=== PATIENT | male | born 1990 | race Caucasian/White ===

== ENCOUNTER 2019-02-13 10:58 | Emergency (ER) | payer SELFPAY ==
[2019-02-13 11:18] VITALS: BP 143/82
== END 2019-02-13 11:16 | disposition left against medical advice (07) ==
LOC: ER 10:58
DX: Z53.21 Procedure and treatment not carried out due to patient leaving prior to being seen by health care provider (principal)

== ENCOUNTER 2019-11-12 07:56 | Emergency (ER) | payer SELFPAY ==
[2019-11-12] MEDS ORDERED: ONDANSETRON 4 MG TAB.RAPDIS PO ONE (09:49)
--- NOTE | 2019-11-12 10:10 | ER Document Report ---
ED Respiratory Problem - General Chief Complaint: Cough Stated Complaint: COUGH,CONGESTION Time Seen by Provider: 11/12/19 09:34 Notes: CHIEF COMPLAINT: Multiple complaints HPI: 29-year-old male presenting with multiple complaints. Patient is a smoker. Patient reports 1 day of sore throat, myalgia, cough with left-sided chest pain with coughing only. States that he had 2-3 episodes of vomiting today denies abdominal pain. No shortness of breath. Has had 2-3 episodes of diarrhea today ROS: See HPI - all other systems were reviewed and are otherwise negative Constitutional: no fever Eyes: no drainage, no blurred vision ENT: no runny nose, no sore throat Cardiovascular: Positive chest pain with coughing Resp: no SOB, + cough GI: + vomiting, + diarrhea, no abdominal pain : no dysuria Integumentary: no rash Allergy: no hives Musculoskeletal: no extremity pain or swelling Neurological: no numbness/tingling, no weakness MEDICATIONS: I agree with the patient medications as charted by the RN. ALLERGIES: I agree with the allergies as charted by the RN. PAST MEDICAL HISTORY/PAST SURGICAL HISTORY: Reviewed and agree as charted by RN. SOCIAL HISTORY: Reviewed and agree as charted by RN. FAMILY HISTORY: No significant familial comorbid conditions directly related to patient complaint EXAM: Reviewed vital signs as charted by RN. CONSTITUTIONAL: Alert and oriented and responds appropriately to questions. Well-appearing; well-nourished HEAD: Normocephalic; atraumatic EYES: PERRL; Conjunctivae clear, sclerae non-icteric ENT: normal nose; no rhinorrhea; moist mucous membranes; pharynx without lesions noted, no uvula edema or deviation, no tonsillar hypertrophy, phonation normal NECK: Supple without meningismus; non-tender; no cervical lymphadenopathy, no masses CARD: RRR; no murmurs, no clicks, no rubs, no gallops; symmetric distal pulses RESP: Normal chest excursion without splinting or tachypnea; breath sounds clear and equal bilaterally; no wheezes, no rhonchi, no rales, pulse oximetry 98% on room air not hypoxic. Mild tenderness in the left lateral chest wall on palpation ABD/GI: Normal bowel sounds; non-distended; soft, non-tender, no rebound, no guarding; no palpable organomegaly or masses. BACK: The back appears normal and is non-tender to palpation, there is no CVA tenderness EXT: Normal ROM in all joints; non-tender to palpation; no cyanosis, no effusions, no edema SKIN: Normal color for age and race; warm; dry; good turgor; no acute lesions noted NEURO: Moves all extremities equally; Motor and sensory function intact PSYCH: The patient's mood and manner are appropriate. Grooming and personal hygiene are appropriate. MDM: 29-year-old male upper respiratory symptoms over the last 24 hours she is a smoker also with several episodes of vomiting. Has been pain in the left chest wall with coughing and with palpation. Low suspicion for ACS. Will obtain strep test, COVID test, chest x-ray, give Zofran for nausea. TRAVEL OUTSIDE OF THE [place] IN LAST 30 DAYS: No - Related Data Allergies/Adverse Reactions: No Known Allergies Allergy (Verified 11/12/19 08:22) Past Medical History - Social History Smoking Status: Current Every Day Smoker Chew tobacco use (# tins/day): No Frequency of alcohol use: Heavy Drug Abuse: None Family History: Reviewed & Not Pertinent, DM, Other - uncle [place] in 50's Patient has homicidal ideation: No - Past Medical History Cardiac Medical History: Reports: Hx Heart Murmur - as - Immunizations Immunizations up to date: Yes Hx Diphtheria, Pertussis, Tetanus Vaccination: Yes Physical Exam - Vital signs Vitals: Temp Pulse Resp BP Pulse Ox 97.6 F 89 18 149/105 H 100 11/12/19 08:06 11/12/19 08:06 11/12/19 08:06 11/12/19 08:06 11/12/19 08:06 Course - Re-evaluation Re-evalutation: 11/12/19 10:34 Chest x-ray on my review does not reveal evidence of an infiltrate or pneumonia 11/12/19 11:59 Rapid strep is negative. Nausea is improved. Patient will be a person under investigation for COVID-19 pending results 11/12/19 12:12 Patient was noted to be mildly hypertensive have requested nursing to recheck his blood pressure prior to discharge and notify me if abnormal. Patient may follow this up with his primary care provider for further evaluation and this was discussed with the patient - Vital Signs Vital signs: Temp Pulse Resp BP Pulse Ox 97.6 F 89 18 149/105 H 100 11/12/19 08:06 11/12/19 08:06 11/12/19 08:06 11/12/19 08:06 11/12/19 08:06 Discharge - Discharge Clinical Impression: Cough, Person under investigation for COVID-19 Vomiting Qualifiers: Vomiting type: unspecified Vomiting Intractability: non-intractable Nausea presence: with nausea Qualified Code(s): R11.2 - Nausea with vomiting, unspecified Hypertension Qualifiers: Hypertension type: unspecified Qualified Code(s): I10 - Essential (primary) hypertension Condition: Stable Disposition: HOME, SELF-CARE Instructions: COVID-19 Guidance for Persons Under Investigation Additional Instructions: You are considered a person under investigation for COVID-19 at this time self quarantine at home pending your test results which may take 2 to 5 days. You will likely receive an email with your results. Use the albuterol inhaler 2 puffs every 4 hours as needed to help with coughing. Take Zofran for any nausea or vomiting issues. Continue to hydrate well at home. Follow-up with your primary care provider for reevaluation of symptoms call for appointment. It was noted today initially that your blood pressure was slightly elevated if this continues to be the case you may follow-up with a primary care provider for reevaluation Prescriptions: Albuterol Sulfate [Proair HFA Inhalation Aerosol 8.5 gm MDI] 2 puff IH Q4H PRN #1 mdi PRN Reason: Ondansetron [Zofran Odt 4 mg Tablet] 1 - 2 tab PO Q4H PRN #15 tab.rapdis PRN Reason: For Nausea/Vomiting Referrals: DAYANA HURT MD [ACTIVE STAFF] - Follow up as needed
--- NOTE | 2019-11-12 10:36 | RADIOLOGY REPORT (SQ) ---
EXAM DESCRIPTION: CHEST SINGLE VIEW IMAGES COMPLETED DATE/TIME: 11/12/2019 10:26 am REASON FOR STUDY: cough/congestion COMPARISON: 05/14/2014 EXAM PARAMETERS: NUMBER OF VIEWS: One view. TECHNIQUE: Single frontal radiographic view of the chest acquired. RADIATION DOSE: NA LIMITATIONS: None. FINDINGS: LUNGS AND PLEURA: No opacities, masses or pneumothorax. No pleural effusion. MEDIASTINUM AND HILAR STRUCTURES: No masses. Contour normal. HEART AND VASCULAR STRUCTURES: Heart normal in size. Normal vasculature. BONES: Healed left-sided rib fracture. HARDWARE: None in the chest. OTHER: No other significant finding. IMPRESSION: NO ACUTE RADIOGRAPHIC FINDING IN THE CHEST. TECHNICAL DOCUMENTATION: JOB ID: [id number] 2010 [employer]- All Rights Reserved Reading location - IP/workstation name: [email or web address]
[2019-11-12 12:07] VITALS: BP 134/91
== END 2019-11-12 12:20 | disposition home or self-care (01) ==
LOC: ER 07:56
DX: J02.9 Acute pharyngitis, unspecified (principal); R05 Cough; M79.10 Myalgia, unspecified site; F17.200 Nicotine dependence, unspecified, uncomplicated; I10 Essential (primary) hypertension; Z20.828 Contact with and (suspected) exposure to other viral communicable diseases
CPT/HCPCS: 99284; 87070; 87880; 87635; 87077; 71045; S0119; C9803

== ENCOUNTER 2020-02-14 10:45 | Inpatient (IN) | payer SELFPAY ==
--- NOTE | 2020-02-14 12:09 | ER Document Report ---
ED Medical Screen (RME) - General Chief Complaint: Abdominal Pain Stated Complaint: ABDOMINAL PAIN,VOMITING,DIARRHEA Time Seen by Provider: 02/14/20 12:02 Mode of Arrival: Ambulatory Information source: Patient Notes: 29-year-old male presented to ED for complaint nausea vomiting distended abdomen a lot of pain. He states he drank a lot of beer on [employer]. He states he has had nausea and vomiting as well as stomach and pain since then. He states he does drink every every day. He does smoke a pack a day and he uses recreational Vicodin Percocets. He states he does not use any other illicit drugs. I have greeted and performed a rapid initial assessment of this patient. A comprehensive ED assessment and evaluation of the patient, analysis of test results and completion of medical decision making process will be conducted by an additional ED providers. TRAVEL OUTSIDE OF THE [place] IN LAST 30 DAYS: No - Related Data Allergies/Adverse Reactions: No Known Allergies Allergy (Verified 11/12/19 08:22) Past Medical History - Social History Frequency of alcohol use: Heavy Drug Abuse: Prescription drugs - Past Medical History Cardiac Medical History: Reports: Hx Heart Murmur - as - Immunizations Immunizations up to date: Yes Hx Diphtheria, Pertussis, Tetanus Vaccination: Yes Physical Exam - Vital signs Vitals: Temp Pulse Resp BP Pulse Ox 98.0 F 126 H 22 H 121/87 H 98 02/14/20 11:26 02/14/20 11:26 02/14/20 11:02/14/20 11:02/14/20 11:26 Course - Vital Signs Vital signs: Temp Pulse Resp BP Pulse Ox 98.0 F 126 H 22 H 121/87 H 98 02/14/20 11:26 02/14/20 11:26 02/14/20 11:26 02/14/20 11:02/14/20 11:26
[2020-02-14 12:38] LABS: ABSOLUTE LYMPHOCYTES (AUTO) 1.7 10^3/uL (0.5-4.7); ABSOLUTE MONOCYTES (AUTO) 0.3 10^3/uL (0.1-1.4); BASOPHILS % (AUTO) 0.1 % (0-2); HEMATOCRIT 51.4 % (37.9-51.0); HEMOGLOBIN 18.2 g/dL (13.5-17.0); LYMPHOCYTES % (AUTO) 16.8 % (13-45); MEAN CORPUSCULAR HEMOGLOBIN 34.2 pg (27.0-33.4); MEAN CORPUSCULAR HGB CONC 35.3 g/dL (32.0-36.0); MEAN CORPUSCULAR VOLUME 97 fl (80-97); MONOCYTES % (AUTO) 3.3 % (3-13); RED BLOOD COUNT 5.31 10^6/uL (4.35-5.55); RED CELL DISTRIBUTION WIDTH 15.8 % (11.5-14.0); SEGMENTED NEUTROPHILS % (AUTO) 79.8 % (42-78); TOTAL CELLS COUNTED % (AUTO) 100 %
[2020-02-14 13:43] LABS: PLATELET COUNT 179 10^3/uL (150-450)
[2020-02-14 16:53] LABS: ALBUMIN 3.7 g/dL (3.5-5.0); ALKALINE PHOSPHATASE 109 U/L (38-126); ANION GAP 16 (5-19); ASPARTATE AMINO TRANSFERASE 102 U/L (17-59); BILIRUBIN,TOTAL 1.6 mg/dL (0.2-1.3); BLOOD UREA NITROGEN 25 mg/dL (7-20); CARBON DIOXIDE 18 mmol/L (22-30); CHLORIDE 92 mmol/L (98-107); GLUCOSE 159 mg/dL (75-110); POTASSIUM 4.5 mmol/L (3.6-5.0)
[2020-02-14 16:54] LABS: ALCOHOL < 10 mg/dL (NONE DETECTED)
[2020-02-14 17:01] LABS: CALCIUM 6.4 mg/dL (8.4-10.2)
[2020-02-14] MEDS ORDERED: HYDROMORPHONE HCL INJ/PF 2 MG/ML AMPULE IV ONE ×2 (17:42→20:08)
[2020-02-14] MEDS ORDERED: ONDANSETRON HCL INJ/PF 4 MG/2 ML SDV IV ONE ×2 (17:42→20:09)
[2020-02-14] MEDS ORDERED: NORMAL SALINE 1000 ML 1,000 ML IV ONE ×2 (17:48→20:27)
--- NOTE | 2020-02-14 17:50 | ER Document Report ---
ED General - General Chief Complaint: Abdominal Pain Stated Complaint: ABDOMINAL PAIN,VOMITING,DIARRHEA Time Seen by Provider: 02/14/20 12:02 Mode of Arrival: Ambulatory Information source: Patient Notes: 29-year-old man presenting to the emergency department with a 3-day history of increasing abdominal pain and also increase in abdominal girth. He is a heavy drinker according to significant other he drinks every day 6-8 8 ounce cans of alcoholic beverage daily. He has some associated nausea, loss of appetite and denies diarrhea or hematemesis. He has had a history of withdrawal seizures in the past. He does note, "he feels a bit shaky", but denies any seizure activity since he stopped drinking 4 days ago. TRAVEL OUTSIDE OF THE [place] IN LAST 30 DAYS: No - Related Data Allergies/Adverse Reactions: No Known Allergies Allergy (Verified 11/12/19 08:22) Past Medical History - General Information source: Patient - Social History Smoking Status: Unknown if Ever Smoked Frequency of alcohol use: Heavy Drug Abuse: Prescription drugs Family History: Reviewed & Not Pertinent, DM, Other - uncle [place] in 50's - Past Medical History Cardiac Medical History: Reports: Hx Heart Murmur - as - Immunizations Immunizations up to date: Yes Hx Diphtheria, Pertussis, Tetanus Vaccination: Yes Review of Systems - Review of Systems Notes: Constitutional: Negative for fever. HENT: Negative for sore throat. Eyes: Negative for visual changes. Cardiovascular: Negative for chest pain. Respiratory: Negative for shortness of breath. Gastrointestinal: See HPI Genitourinary: Negative for dysuria. Musculoskeletal: Negative for back pain. Skin: Negative for rash. Neurological: Negative for headaches, weakness or numbness. 10 point ROS negative except as marked above and in HPI. Physical Exam - Vital signs Vitals: Temp Pulse Resp BP Pulse Ox 98.0 F 126 H 22 H 121/87 H 98 02/14/20 11:26 02/14/20 11:26 02/14/20 11:02/14/20 11:02/14/20 11:26 - Notes Notes: PHYSICAL EXAMINATION: Physical Exam: General: Well-nourished well-developed in no acute distress HEENT: NC/AT, pupils equal round and reactive to light, MM moist,nares clear, oropharynx clear, airway patent Neck: supple, no adenopathy, no masses. Good range of motion Lungs: clear, no wheezing, no rales no rhonchi CVS: Regular rate and rhythm no murmur gallop or rub Abdomen: Soft, active, diffuse tenderness, mildly distended abdomen, no masses, no hepatosplenomegaly Ext: No edema, clubbing or cyanosis. Neuro: Alert and responsive, moving all 4 extremities on command, cranial nerves intact, no focal findings Skin: Intact no open lesions, no rash PSYCH: Normal mood, normal affect. Course - Re-evaluation Re-evalutation: 02/14/20 20:02 Patient who has been a heavy alcohol user and has now developed severe abdominal pain over the past 3 days. He has not drank in the past 4 days according to his significant other and the patient. He has obvious pancreatitis with markedly elevated lipase and CT findings suggestive of acute pancreatitis. He also has elevated BUN and creatinine, LITA. IV fluids have been started he is given hydromorphone for pain as well as Zofran for nausea. I will did talk to the hospitalist about this patient and need for hospitalization. 02/14/20 20:03 - Vital Signs Vital signs: Temp Pulse Resp BP Pulse Ox 98.1 F 101 H 14 147/88 H 96 02/15/20 12:36 02/15/20 16:00 02/15/20 16:00 02/15/20 12:36 02/15/20 16:00 - Laboratory Results Result Diagrams: 02/15/20 06:37 02/15/20 13:20 Laboratory Results Interpreted: 02/14/20 02/14/20 02/14/20 12:12 16:24 16:24 Hgb 18.2 H Hct 51.4 H MCH 34.2 H RDW 15.8 H Seg Neutrophils % 79.8 H Sodium 125.7 L Chloride 92 L Carbon Dioxide 18 L BUN 25 H Creatinine 2.50 H Est GFR ( Amer) 37 L Est GFR (MDRD) Non-Af 30 L Glucose 159 H Calcium 6.4 L* Total Bilirubin 1.6 H Direct Bilirubin 1.0 H AST 102 H ALT 65 H Ammonia < 8.7 L Lipase 1986.2 H Critical Laboratory Results Reviewed: Yes Attending or Supervising Physician who Reviewed Labs: JOSH UMANZOR - Radiology Results Radiology Results Interpreted: 02/14/20 20:04 Abdomen/Pelvis CT 02/14/20 12:08 IMPRESSION: 1. Acute pancreatitis with small to moderate ascites which is likely reactive. Evaluation of the pancreatic parenchyma is limited without IV contrast. There is subtle hypodense attenuation in the pancreatic head suggestive of developing pancreatic necrosis. 2. Severe hepatic steatosis. 3. Small right pleural effusion. Critical Radiology Results Reviewed: Yes Attending or Supervising Physician who Reviewed Radiology: JOSH UMANZOR Critical Care Note - Critical Care Note Total time excluding time spent on procedures (mins): 60 - Critical care time spent obtaining history from patient or surrogate, discussions with consultants, development of treatment plan with patient or surrogate, evaluation of patient's response to treatment, examination of patient, ordering and performing treatments and interventions, ordering and review of laboratory studies, re- evaluation of patient's condition, ordering and review of radiographic studies and review of old charts Discharge - Discharge Clinical Impression: LITA (acute kidney injury), Hepatic steatosis, Alcohol abuse, Low calcium levels Acute pancreatitis Qualifiers: Pancreatitis type: alcohol induced Acute pancreatitis complication: unspecified Qualified Code(s): K85.20 - Alcohol induced acute pancreatitis without necrosis or infection Condition: Good Disposition: ADMITTED INPATIENT Admitting Provider: Chaitanya (Hospitalist) Unit Admitted: Telemetry
--- NOTE | 2020-02-14 19:09 | RADIOLOGY REPORT (SQ) ---
EXAM DESCRIPTION: CT ABD/PELVIS NO ORAL OR IV IMAGES COMPLETED DATE/TIME: 02/14/2020 5:25 pm REASON FOR STUDY: Distended abdomen severe pain. Renal failure creatinine 2.5 today. COMPARISON: None. TECHNIQUE: CT scan of the abdomen and pelvis performed without intravenous or oral contrast. Images reviewed with lung, soft tissue, and bone windows. Reconstructed coronal and sagittal MPR images revi ewed. All images stored on PACS. All CT scanners at this facility use dose modulation, iterative reconstruction, and/or weight based d osing when appropriate to reduce radiation dose to as low as reasonably achievable (ALARA). [facility]: Dose Right [facility]: CareDose [facility]: Dose Right [facility]: Teradose 4D [facility]: [employer] RADIATION DOSE: CT Rad equipment meets quality standard of care and radiation dose reduction techniq ues were employed. CTDIvol: 5.3 mGy. DLP: 297 mGy-cm.mGy. LIMITATIONS: None. FINDINGS: LOWER CHEST: Small right pleural effusion. No focal consolidation or significant ground-g lass attenuation. NON-CONTRASTED LIVER, SPLEEN, ADRENALS: Limited evaluation due to lack of IV contrast. There is maryanne re hepatic steatosis. Spleen has normal size. No adrenal mass. PANCREAS: Diffuse enlargement of the pancreas with surrounding peripancreatic fluid and inflammatory change. Evaluation of the parenchyma is limited without IV contrast. There is low-attenuation in th e pancreatic head which may represent developing pancreatic necrosis. No evidence of pancreatic duct al dilation. GALLBLADDER: No identified stones by CT criteria. No inflammatory changes to suggest cholecystitis. RIGHT KIDNEY AND URETER: No suspicious masses. Assessment limited by lack of IV contrast. No signif icant calcifications. No hydronephrosis or hydroureter. LEFT KIDNEY AND URETER: No suspicious masses. Assessment limited by lack of IV contrast. No signifi cant calcifications. No hydronephrosis or hydroureter. AORTA AND RETROPERITONEUM: No aneurysm. No retroperitoneal masses or adenopathy. BOWEL AND PERITONEAL CAVITY: There is high density attenuation contrast in the distal ileum and proxi mal colon suggestive of recent ingested in of oral contrast. There is no bowel obstruction. Duodena l wall thickening and surrounding inflammatory change at the pancreaticoduodenal groove is likely altaf ctive. Small to moderate amount of ascites at the duodenum and pancreatic head extending into the ri ght and left pericolic gutters with trace fluid in the pelvis. No pneumoperitoneum. APPENDIX: Normal. PELVIS, BLADDER, AND ABDOMINAL WALL:No abnormal masses. No free fluid. Bladder normal. BONES: No significant findings. OTHER: No other significant finding. IMPRESSION: 1. Acute pancreatitis with small to moderate ascites which is likely reactive. Evaluation of the todd creatic parenchyma is limited without IV contrast. There is subtle hypodense attenuation in the panc reatic head suggestive of developing pancreatic necrosis. 2. Severe hepatic steatosis. 3. Small right pleural effusion. COMMENT: Quality ID # [id number]: Final reports with documentation of one or more dose reduction techniques (e.g., Automated exposure control, adjustment of the mA and/or kV according to patient size, use of iterative reconstruction technique) TECHNICAL DOCUMENTATION: JOB ID: [id number] 2010 [employer]- All Rights Reserved Reading location - IP/workstation name: [email or web address]
[2020-02-14] MEDS ORDERED: CALCIUM GLUCONATE 1000 MG/10 ML INJ IV ONE (20:13)
[2020-02-14] MEDS ORDERED: LORAZEPAM INJ 2 MG/1 ML VIAL IV ONE (20:29)
[2020-02-14] MEDS ORDERED: IPRATROPIUM/ALBUTEROL 0.5-2.5 MG/3 ML AMPUL NEB PRN (20:55)
[2020-02-14] MEDS ORDERED: NORMAL SALINE 1000 ML 1,000 ML IV PRN (20:55)
[2020-02-14] MEDS ORDERED: ACETAMINOPHEN 325 MG TABLET PO PRN (20:55)
[2020-02-14] MEDS ORDERED: MAGNESIUM HYDROXIDE SUSP 30 ML UDCUP PO PRN (20:55)
[2020-02-14] MEDS ORDERED: ONDANSETRON 4 MG TAB.RAPDIS PO PRN (20:55)
[2020-02-14] MEDS ORDERED: ONDANSETRON HCL INJ/PF 4 MG/2 ML SDV IV PRN (20:55)
[2020-02-14] MEDS ORDERED: DIAZEPAM INJ 10 MG/2 ML DISP.SYRIN IV PRN (21:00)
[2020-02-14] MEDS ORDERED: NORMAL SALINE 1000 ML 1,000 ML with POTASSIUM CHLORIDE 20 MEQ, MAGNESIUM SULFATE 8 MEQ,... IV ONE ×5 (22:30)
[2020-02-14] MEDS ORDERED: CEFTRIAXONE 1 GM/D5W RTU 1 GM/50 ML RTUPB IV ONE (23:00)
--- NOTE | 2020-02-14 23:12 | PDOC H&P ---
History of Present Illness Admission Date/PCP: 02/14/20 20:24 History of Present Illness: CARLOS FLYNN JR is a 29 year old male Past medical history of EtOH abuse presenting to ED complaining of abdominal pain x3 days. Patient has a history of daily drinking for several years, drinks about 6-8 8 ounce cans of alcoholic beverages daily, about 4 days ago he started having abdominal pain and he stopped drinking, since then he has been having worsening abdominal pain, abdominal distention, loss of appetite, diarrhea, nausea and vomiting. Abdominal pain is explained as diffuse, stabbing, 10/10 on severity scale, radiating to back, better with certain body position, constant, worse with eating or movement. Also complaining of being very anxious, having diffuse muscular spasms especially in the neck. Patient has history of multiple alcohol withdrawals however has never been hospitalized for alcohol withdrawal, he also has history of alcohol induced seizure but is not on any antiseizure medications. Patient denies any fever, shortness of breath, chest pain. In ED he was noted to be hyponatremic, with elevated BUN and creatinine, severe hypocalcemia, elevated liver chemistries, and lipase of 1986.[address] abdomen patient was noted to have acute pancreatitis with small to moderate ascites and subtle hypodense attenuation in the pancreatic head possibly developing panc reatic necrosis, slight pleural effusion and severe hepatic steatosis. Hospitalist was consulted for admission. Past Medical History Cardiac Medical History: Reports: Heart Murmur - as Social History Smoking Status: Unknown if Ever Smoked Family History Family History: Reviewed & Not Pertinent, DM, Other - uncle [place] in 50's Parental Family History Reviewed: Yes Children Family History Reviewed: Yes Sibling(s) Family History Reviewed.: Yes Medication/Allergy Home Medications: Hydrocodone/Acetaminophen [[place] 5-325 mg Tablet] 1 - 2 tab PO ASDIR #15 tablet 04/05/15 Ibuprofen [Advil] 200 mg PO Q2DAYS 04/05/15 Methocarbamol [Robaxin] 500 mg PO BID PRN #20 tablet 04/05/15 Albuterol Sulfate [Proair HFA Inhalation Aerosol 8.5 gm MDI] 2 puff IH Q4H PRN #1 mdi 11/12/19 Ondansetron [Zofran Odt 4 mg Tablet] 1 - 2 tab PO Q4H PRN #15 tab.rapdis 10/21 05/08 Allergies/Adverse Reactions: No Known Allergies Allergy (Verified 11/12/19 08:22) Review of Systems Review of Systems: as per hpi Physical Exam Vital Signs: Temp Pulse Resp BP Pulse Ox 98.2 F 112 H 14 131/82 H 97 02/14/20 21:43 02/14/20 21:43 02/14/20 21:43 02/14/20 21:43 02/14/20 21:43 Intake & Output 02/13/20 02/14/20 02/15/20 06:59 06:59 06:59 Intake Total 1999 Balance 1999 Weight 76.7 kg General appearance: PRESENT: severe distress, other - Sitting in bed appears very uncomfortable and in a lot of pain. Head exam: PRESENT: atraumatic, normocephalic Neck exam: ABSENT: carotid bruit, JVD, lymphadenopathy, thyromegaly Respiratory exam: PRESENT: clear to auscultation landry, tachypnea. ABSENT: rales, rhonchi, wheezes Cardiovascular exam: PRESENT: RRR, tachycardia. ABSENT: diastolic murmur, rubs, systolic murmur Pulses: PRESENT: normal dorsalis pedis pul GI/Abdominal exam: PRESENT: distended, firm, guarding, hypoactive bowel sounds, tenderness - Diffuse. ABSENT: mass, organolmegaly, rebound Extremities exam: PRESENT: full ROM. ABSENT: calf tenderness, clubbing, pedal edema Neurological exam: PRESENT: alert, awake, oriented to person, oriented to place, oriented to time, oriented to situation, CN II-XII grossly intact. ABSENT: motor sensory deficit Psychiatric exam: PRESENT: anxious Results Laboratory Results: 02/14/20 12:12 02/14/20 16:24 02/14/20 02/14/20 02/14/20 12:12 12:12 12:12 WBC 10.0 RBC 5.31 Hgb 18.2 H Hct 51.4 H MCV 97 MCH 34.2 H MCHC 35.3 RDW 15.8 H Plt Count 179 Seg Neutrophils % 79.8 H Sodium Cancelled Potassium Cancelled Chloride Cancelled Carbon Dioxide Cancelled Anion Gap Cancelled BUN Cancelled Creatinine Cancelled Est GFR ( Amer) Cancelled Est GFR (Non-Af Amer) Cancelled Glucose Cancelled Calcium Cancelled Total Bilirubin Cancelled AST Cancelled Alkaline Phosphatase Cancelled Ammonia Cancelled Total Protein Cancelled Albumin Cancelled Lipase Cancelled 02/14/20 02/14/20 16:24 16:24 WBC RBC Hgb Hct MCV MCH MCHC RDW Plt Count Seg Neutrophils % Sodium 125.7 L Potassium 4.5 Chloride 92 L Carbon Dioxide 18 L Anion Gap 16 BUN 25 H Creatinine 2.50 H Est GFR ( Amer) 37 L Est GFR (Non-Af Amer) Glucose 159 H Calcium 6.4 L* Total Bilirubin 1.6 H AST 102 H Alkaline Phosphatase 109 Ammonia < 8.7 L Total Protein 7.0 Albumin 3.7 Lipase 1986.2 H Impressions: Abdomen/Pelvis CT 02/14/20 12:08 IMPRESSION: 1. Acute pancreatitis with small to moderate ascites which is likely reactive. Evaluation of the pancreatic parenchyma is limited without IV contrast. There is subtle hypodense attenuation in the pancreatic head suggestive of developing pancreatic necrosis. 2. Severe hepatic steatosis. 3. Small right pleural effusion. Assessment and Plan - Diagnosis (1) Acute alcoholic pancreatitis Qualifiers: Acute pancreatitis complication: uninfected necrosis Qualified Code(s): K85.21 - Alcohol induced acute pancreatitis with uninfected necrosis Is this a current diagnosis for this admission?: Yes Plan: Severe alcoholic pancreatitis. Denies any history of previous pancreatitis. Denies any history of abdominal trauma. Denies any history of hypertriglyceridemia. Presenting with sodium 125, BUN 25, creatinine 2.5, glucose 159, calcium 6.4, total bilirubin 1.6, AST 102, ALT 65, lipase 1985 CT abdomen positive for acute pancreatitis with moderate ascites and subtle hypodense attenuation in the pancreatic head possibly developing pancreatic necrosis. Admit to IMCU, aggressive volume resuscitation guided by volume status, opioid and nonopioid analgesics, antiemetics, monitor electrolytes, monitor vitals, empiric IV antibiotics. (2) Alcohol withdrawal Qualifiers: Complication of substance-induced condition: uncomplicated Qualified Code(s): F10.230 - Alcohol dependence with withdrawal, uncomplicated Is this a current diagnosis for this admission?: Yes Plan: History of heavy alcohol abuse for several years. Drinks about 8 6 ounces of alcoholic beverages daily. Admits to history of alcohol induced seizure. Admits to history of alcohol withdrawals. Noted to be very anxious, tachypneic, denies any auditory or visual hallucina tions. Admit to IMCU, CIWA protocol, DT precautions. (3) Hypocalcemia Is this a current diagnosis for this admission?: Yes Plan: Most likely due to acute severe alcoholic pancreatitis. Continue IV calcium replacement. Monitor calcium level and replace as needed. (4) LITA (acute kidney injury) Is this a current diagnosis for this admission?: Yes Plan: Nonoliguric. Prerenal most likely due to volume depletion caused by nausea and vomiting. Presenting with creatinine of 2.50. Baseline creatinine 0.8. Continue volume resuscitation guided by volume status. Monitor electrolytes and replace as needed. Avoid nephrotoxic meds. If no improvement consult nephrology. (5) Alcohol abuse Is this a current diagnosis for this admission?: Yes Plan: Extensively counseled on alcohol abstinence. Encourage seeking rehab post discharge. (6) Hepatic steatosis Is this a current diagnosis for this admission?: Yes Plan: Most likely due to heavy alcohol abuse. CT abdomen positive for severe alcoholic steatohepatitis. Elevated T bili, elevated liver chemistries, normal platelets. We will order hepatitis panel to rule out any infectious causes of steatohepatitis. Monitor liver chemistries. Outpatient PCP and gastroenterology follow-up. - Time Time Spent with patient: 35 or more minutes Anticipated Discharge Disposition: Home, Self Care Anticipated Discharge Timeframe: within 72 hours
[2020-02-14] MEDS ORDERED: METOPROLOL TARTRATE PF/INJ 5 MG/5 ML SDV IV PRN (23:20)
[2020-02-15] MEDS: HEPARIN SOD (PORCINE) 5,000 UNIT/ML 1 ML VIAL SUBCUT SCH ×4 (01:08→21:54)
[2020-02-15] MEDS: MORPHINE SULFATE 10 MG/ML INJ IV PRN ×9 (01:09→21:53)
[2020-02-15] MEDS: PROMETHAZINE HCL INJ 25 MG/1 ML VIAL IV PRN ×3 (02:08→13:50)
[2020-02-15 02:20] LABS: ANION GAP 7 (5-19); BLOOD UREA NITROGEN 23 mg/dL (7-20); CARBON DIOXIDE 23 mmol/L (22-30); CHLORIDE 96 mmol/L (98-107); GLUCOSE 118 mg/dL (75-110); POTASSIUM 4.3 mmol/L (3.6-5.0)
[2020-02-15 02:32] LABS: CALCIUM 6.2 mg/dL (8.4-10.2)
[2020-02-15] MEDS: CALCIUM GLUCONATE 1 GM/NS 50 ML RTU IV SCH ×3 (03:17→09:08)
[2020-02-15] MEDS ORDERED: CEFTRIAXONE 1 GM/D5W RTU 1 GM/50 ML RTUPB IV ONE (04:31)
[2020-02-15 05:12] LABS: APPEARANCE,URINE SLIGHTLY-CLOUDY; BILIRUBIN,URINE NEGATIVE (NEGATIVE); GLUCOSE, URINE NEGATIVE (NEGATIVE); KETONES,URINE TRACE mg/dL (NEGATIVE); LEUKOCYTE ESTERASE,URINE NEGATIVE (NEGATIVE); NITRITE,URINE NEGATIVE (NEGATIVE); PROTEIN,URINE 100 mg/dL (NEGATIVE); URINE SPECIFIC GRAVITY 1.024; UROBILINOGEN,URINE NEGATIVE mg/dL (<2.0)
[2020-02-15 05:18] LABS: COLOR,URINE DARK YELLOW
[2020-02-15 05:24] LABS: URINE AMPHETAMINES SCREEN NEGATIVE; URINE BARBITURATES SCREEN NEGATIVE; URINE BENZODIAZEPINES SCREEN NEGATIVE; URINE MARIJUANA (THC) SCREEN NEGATIVE; URINE METHADONE SCREEN NEGATIVE; URINE PHENCYCLIDINE SCREEN NEGATIVE
[2020-02-15 05:34] LABS: URINE COCAINE SCREEN UNCONFIRMED POSITIVE
[2020-02-15] MEDS: PANTOPRAZOLE SODIUM 40 MG TABLET.DR PO SCH ×2 (06:16→16:57)
[2020-02-15 07:40] LABS: INTERNATIONAL RATION (INR) 0.99; PROTHROMBIN TIME 13.3 SEC (11.4-15.4)
[2020-02-15 07:52] LABS: ABSOLUTE MONOCYTES (AUTO) 0.3 10^3/uL (0.1-1.4); ABSOLUTE NEUT (AUTO) 4.1 10^3/uL (1.7-8.2); BASOPHILS % (AUTO) 0.2 % (0-2); EOSINOPHILS % (AUTO) 0.3 % (0-6); HEMATOCRIT 42.5 % (37.9-51.0); LYMPHOCYTES % (AUTO) 18.1 % (13-45); MEAN CORPUSCULAR HEMOGLOBIN 33.3 pg (27.0-33.4); MEAN CORPUSCULAR HGB CONC 34.1 g/dL (32.0-36.0); MEAN CORPUSCULAR VOLUME 98 fl (80-97); MONOCYTES % (AUTO) 4.7 % (3-13); RED BLOOD COUNT 4.35 10^6/uL (4.35-5.55); RED CELL DISTRIBUTION WIDTH 15.7 % (11.5-14.0); SEGMENTED NEUTROPHILS % (AUTO) 76.7 % (42-78); TOTAL CELLS COUNTED % (AUTO) 100 %; WHITE BLOOD COUNT 5.3 10^3/uL (4.0-10.5)
[2020-02-15 08:01] LABS: ALBUMIN 2.9 g/dL (3.5-5.0); ALKALINE PHOSPHATASE 87 U/L (38-126); ANION GAP 9 (5-19); ASPARTATE AMINO TRANSFERASE 69 U/L (17-59); BILIRUBIN,DIRECT 0.5 mg/dL (0.0-0.4); BILIRUBIN,TOTAL 1.1 mg/dL (0.2-1.3); BLOOD UREA NITROGEN 20 mg/dL (7-20); CARBON DIOXIDE 22 mmol/L (22-30); CHLORIDE 96 mmol/L (98-107); GLUCOSE 108 mg/dL (75-110); PHOSPHORUS 2.2 mg/dL (2.5-4.5); POTASSIUM 4.2 mmol/L (3.6-5.0); TOTAL PROTEIN 5.6 g/dL (6.3-8.2)
[2020-02-15 08:09] LABS: DIRECT LDL 49 mg/dL (<100)
[2020-02-15 08:15] LABS: CHOLESTEROL 361.22 mg/dL (0-200); TRIGLYCERIDES 898 mg/dL (<150)
[2020-02-15 08:18] LABS: CALCIUM 6.5 mg/dL (8.4-10.2)
[2020-02-15] MEDS ORDERED: GLUCAGON,HUMAN RECOMB 1 MG INJ IM PRN (08:37)
[2020-02-15] MEDS ORDERED: DEXTROSE 40% GEL 15 GM TUBE PO PRN ×2 (08:37)
[2020-02-15] MEDS ORDERED: DEXTROSE 50%-WATER 25 GM/50 ML DISP.SYRIN IV PRN ×2 (08:37)
[2020-02-15 09:04] LABS: PLATELET COUNT 115 10^3/uL (150-450)
[2020-02-15 09:05] LABS: HEMOGLOBIN 14.5 g/dL (13.5-17.0)
[2020-02-15] MEDS ORDERED: NORMAL SALINE 100 ML with INSULIN REGULAR, HUMAN 100 UNIT IV PRN ×2 (09:30)
[2020-02-15] MEDS: DEXTROSE 5%-NORMAL SALINE 1,000 ML IV PRN ×2 (10:10→16:56)
[2020-02-15] MEDS: THIAMINE HCL 100 MG TABLET PO SCH (10:11)
[2020-02-15] MEDS: FOLIC ACID 1 MG TABLET PO SCH (10:11)
[2020-02-15 14:35] LABS: ALBUMIN 2.7 g/dL (3.5-5.0); ALKALINE PHOSPHATASE 71 U/L (38-126); ASPARTATE AMINO TRANSFERASE 61 U/L (17-59); BILIRUBIN,DIRECT 0.5 mg/dL (0.0-0.4); BILIRUBIN,TOTAL 1.1 mg/dL (0.2-1.3); BLOOD UREA NITROGEN 15 mg/dL (7-20); CHOLESTEROL 287.47 mg/dL (0-200); GLUCOSE 123 mg/dL (75-110); POTASSIUM 3.7 mmol/L (3.6-5.0); TOTAL PROTEIN 5.2 g/dL (6.3-8.2)
[2020-02-15 14:41] LABS: ANION GAP 5 (5-19); CARBON DIOXIDE 24 mmol/L (22-30); CHLORIDE 97 mmol/L (98-107)
[2020-02-15 14:46] LABS: DIRECT LDL 51 mg/dL (<100)
[2020-02-15 14:47] LABS: TRIGLYCERIDES 784 mg/dL (<150)
[2020-02-15 14:48] LABS: CALCIUM 6.6 mg/dL (8.4-10.2)
[2020-02-15] MEDS ORDERED: CALCIUM GLUCONATE 1000 MG/10 ML INJ IV ONE (20:00)
--- NOTE | 2020-02-15 21:10 | PDOC PROGRESS REPORT ---
Subjective Date:: 02/15/20 Subjective:: CARLOS FLYNN JR is a 29 year old male Past medical history of EtOH abuse prese nting to ED complaining of abdominal pain x3 days. Patient has a history of daily drinking for several years, drinks about 6-8 8 ounce cans of alcoholic beverages daily, about 4 days ago he started having abdominal pain and he stopped drinking, since then he has been having worsening abdominal pain, abdominal distention, loss of appetite, diarrhea, nausea and vomiting. Abdominal pain is explained as diffuse, stabbing, 10/10 on severity scale, radiating to back, better with certain body position, constant, worse with eating or movement. Also complaining of being very anxious, having diffuse muscular spasms especially in the neck. Patient has history of multiple alcohol withdrawals however has never been hospitalized for alcohol withdrawal, he also has history of alcohol induced seizure but is not on any antiseizure medications. Patient denies any fever, shortness of breath, chest pain. In ED he was noted to be hyponatremic, with elevated BUN and creatinine, severe hypocalcemia, elevated liver chemistries, and lipase of 1986.[address] abdomen patient was noted to have acute pancreatitis with small to moderate ascites and subtle hypodense attenuation in the pancreatic head possibly developing pancreatic necrosis, slight pleural effusion and severe hepatic steatosis. Hospitalist was consulted for admission. 02/15/20 Patient was seen and examined at bedside. Still in pain but less from admission, still with nausea, no vomiting. Afebrile, minimal withdrawal symptoms. Trigly cerides noted to be 898 hence he was started on insulin drip and D5 water. Will repeat triglycerides every 12 hours and will stop insulin drip once his triglyceride has decreased to less than 500. Reason For Visit: ACUTE PANCREATITIS Physical Exam Vital Signs: Temp Pulse Resp BP Pulse Ox 99.6 F 106 H 17 137/75 H 95 02/15/20 19:34 02/15/20 19:34 02/15/20 19:34 02/15/20 19:34 02/15/20 19:34 Intake & Output 02/14/20 02/15/20 02/16/20 06:59 06:59 06:59 Intake Total 1999 2114 Output Total 1020 Balance 1999 1095 Weight 79.7 kg General appearance: PRESENT: cooperative, mild distress Head exam: PRESENT: atraumatic, normocephalic Eye exam: PRESENT: EOMI, PERRLA Mouth exam: PRESENT: moist Neck exam: PRESENT: full ROM Respiratory exam: PRESENT: clear to auscultation landry, symmetrical, unlabored Cardiovascular exam: PRESENT: RRR, +S1, +S2 GI/Abdominal exam: PRESENT: distended, hypoactive bowel sounds, soft, tenderness Extremities exam: PRESENT: full ROM Musculoskeletal exam: PRESENT: full ROM Neurological exam: PRESENT: alert, awake, oriented to person, oriented to place, oriented to time, oriented to situation Psychiatric exam: PRESENT: normal mood Skin exam: PRESENT: normal color Results Laboratory Results: 02/15/20 06:37 02/15/20 13:20 02/15/20 02/15/20 02/15/20 01:56 03:25 06:37 WBC 5.3 RBC 4.35 Hgb 14.5 D Hct 42.5 MCV 98 H MCH 33.3 MCHC 34.1 RDW 15.7 H Plt Count 115 L Seg Neutrophils % 76.7 Sodium 126.4 L Potassium 4.3 Chloride 96 L Carbon Dioxide 23 Anion Gap 7 BUN 23 H Creatinine 1.43 H Est GFR ( Amer) > 60 Glucose 118 H Calcium 6.2 L* Phosphorus Magnesium Total Bilirubin AST Alkaline Phosphatase Total Protein Albumin Triglycerides Cholesterol LDL Cholesterol Direct HDL Cholesterol Lipase Urine Color DARK YELLOW Urine Appearance SLIGHTLY-CLOUDY Urine pH 6.0 Ur Specific [place] 1.024 Urine Protein 100 H Urine Glucose (UA) NEGATIVE Urine Ketones TRACE H Urine Blood SMALL H Urine Nitrite NEGATIVE Ur Leukocyte Esterase NEGATIVE Urine WBC (Auto) 1 Urine RBC (Auto) 0 02/15/20 02/15/20 02/15/20 06:37 06:37 13:20 WBC RBC Hgb Hct MCV MCH MCHC RDW Plt Count Seg Neutrophils % Sodium 127.0 L 125.6 L Potassium 4.2 3.7 Chloride 96 L 97 L Carbon Dioxide 22 24 Anion Gap 9 5 BUN 20 15 Creatinine 1.10 0.86 Est GFR ( Amer) > 60 > 60 Glucose 108 123 H Calcium 6.5 L* 6.6 L* Phosphorus 2.2 L Magnesium 2.0 Total Bilirubin 1.1 1.1 AST 69 H 61 H Alkaline Phosphatase 87 71 Total Protein 5.6 L 5.2 L Albumin 2.9 L 2.7 L Triglycerides 898 H 784 H Cholesterol 361.22 H 287.47 H LDL Cholesterol Direct 49 51 HDL Cholesterol 30 L 26 L Lipase 2063.4 H Urine Color Urine Appearance Urine pH Ur Specific [place] Urine Protein Urine Glucose (UA) Urine Ketones Urine Blood Urine Nitrite Ur Leukocyte Esterase Urine WBC (Auto) Urine RBC (Auto) Impressions: Abdomen/Pelvis CT 02/14/20 12:08 IMPRESSION: 1. Acute pancreatitis with small to moderate ascites which is likely reactive. Evaluation of the pancreatic parenchyma is limited without IV contrast. There is subtle hypodense attenuation in the pancreatic head suggestive of developing pancreatic necrosis. 2. Severe hepatic steatosis. 3. Small right pleural effusion. Assessment and Plan - Diagnosis (1) Acute pancreatitis Qualifiers: Pancreatitis type: alcohol induced Acute pancreatitis complication: unspecified Qualified Code(s): K85.20 - Alcohol induced acute pancreatitis without necrosis or infection Is this a current diagnosis for this admission?: Yes Plan: Severe alcoholic pancreatitis. Denies any history of previous pancreatitis. Denies any history of abdominal trauma. Denies any history of hypertriglyceridemia. Presenting with sodium 125, BUN 25, creatinine 2.5, glucose 159, calcium 6.4, total bilirubin 1.6, AST 102, ALT 65, lipase 1985 CT abdomen positive for acute pancreatitis with moderate ascites and subtle hypodense attenuation in the pancreatic head possibly developing pancreatic necrosis. TAG 894 likely alcohol induced as well BISAP score moderate severit Admit to IMCU, aggressive volume resuscitation guided by volume status, opioid and nonopioid analgesics, antiemetics, monitor electrolytes, monitor vitals, empiric IV antibiotics. (2) LITA (acute kidney injury) Is this a current diagnosis for this admission?: Yes Plan: Nonoliguric. Prerenal most likely due to volume depletion caused by nausea and vomiting. Presenting with creatinine of 2.50>0.86. Baseline creatinine 0.8. Continue volume resuscitation guided by volume status. Monitor electrolytes and replace as needed. Avoid nephrotoxic meds. If no improvement consult nephrology. (3) Hypertriglyceridemia Is this a current diagnosis for this admission?: Yes Plan: - TAG 894 - started on insulin drip to control TAG as he has hypocalcemia and moderately sever pancreatitis - lipid panel q12 goal level <500 then will start him on fenofibrate and statin (4) Alcohol abuse Is this a current diagnosis for this admission?: Yes Plan: Extensively counseled on alcohol abstinence. Encourage seeking rehab post discharge. (5) Alcohol withdrawal Qualifiers: Complication of substance-induced condition: uncomplicated Qualified Code(s): F10.230 - Alcohol dependence with withdrawal, uncomplicated Is this a current diagnosis for this admission?: Yes Plan: History of heavy alcohol abuse for several years. Drinks about 8 6 ounces of alcoholic beverages daily. Admits to history of alcohol induced seizure. Admits to history of alcohol withdrawals. Noted to be very anxious, tachypneic, denies any auditory or visual hallucinations. Admit to IMCU, CIWA protocol, DT precautions. (6) Hypocalcemia Is this a current diagnosis for this admission?: Yes Plan: Most likely due to acute severe alcoholic pancreatitis. Continue IV calcium replacement. Monitor calcium level and replace as needed. - Time Time Spent with patient: 25-34 minutes Medications reviewed and adjusted accordingly: Yes Anticipated Discharge Disposition: Home, Self Care Anticipated Discharge Timeframe: tbd
[2020-02-15] MEDS: CEFTRIAXONE 1 GM/D5W RTU 1 GM/50 ML RTUPB IV SCH (22:30)
[2020-02-16] MEDS: MORPHINE SULFATE 10 MG/ML INJ IV PRN ×10 (00:15→21:59)
[2020-02-16] MEDS: DEXTROSE 5%-NORMAL SALINE 1,000 ML IV PRN ×3 (00:30→15:51)
[2020-02-16] MEDS ORDERED: CALCIUM GLUCONATE 1000 MG/10 ML INJ IV ONE (02:04)
[2020-02-16] MEDS: TEMAZEPAM 15 MG CAPSULE PO PRN ×2 (02:57→23:55)
[2020-02-16 04:39] LABS: CHOLESTEROL 231.89 mg/dL (0-200); TRIGLYCERIDES 284 mg/dL (<150)
[2020-02-16 04:50] LABS: DIRECT LDL 93 mg/dL (<100)
[2020-02-16 04:54] LABS: VLDL CHOLESTEROL 56.8 mg/dL (10-31)
[2020-02-16] MEDS: PANTOPRAZOLE SODIUM 40 MG TABLET.DR PO SCH ×2 (05:20→17:50)
[2020-02-16] MEDS: HEPARIN SOD (PORCINE) 5,000 UNIT/ML 1 ML VIAL SUBCUT SCH ×3 (05:21→21:48)
[2020-02-16] MEDS: FOLIC ACID 1 MG TABLET PO SCH (09:19)
[2020-02-16] MEDS: THIAMINE HCL 100 MG TABLET PO SCH (09:19)
[2020-02-16 10:08] LABS: HEMATOCRIT 34.5 % (37.9-51.0); MEAN CORPUSCULAR HEMOGLOBIN 33.9 pg (27.0-33.4); MEAN CORPUSCULAR HGB CONC 34.8 g/dL (32.0-36.0); MEAN CORPUSCULAR VOLUME 97 fl (80-97); PLATELET COUNT 103 10^3/uL (150-450); RED BLOOD COUNT 3.54 10^6/uL (4.35-5.55); RED CELL DISTRIBUTION WIDTH 15.3 % (11.5-14.0); WHITE BLOOD COUNT 3.9 10^3/uL (4.0-10.5)
[2020-02-16 10:24] LABS: ALBUMIN 2.7 g/dL (3.5-5.0); ALKALINE PHOSPHATASE 59 U/L (38-126); ASPARTATE AMINO TRANSFERASE 61 U/L (17-59); BILIRUBIN,DIRECT 0.7 mg/dL (0.0-0.4); BILIRUBIN,TOTAL 1.4 mg/dL (0.2-1.3); BLOOD UREA NITROGEN 8 mg/dL (7-20); CALCIUM 7.8 mg/dL (8.4-10.2); CHOLESTEROL 220.71 mg/dL (0-200); GLUCOSE 96 mg/dL (75-110); PHOSPHORUS 1.6 mg/dL (2.5-4.5); POTASSIUM 3.7 mmol/L (3.6-5.0); TRIGLYCERIDES 232 mg/dL (<150)
[2020-02-16 10:31] LABS: CARBON DIOXIDE 27 mmol/L (22-30); CHLORIDE 99 mmol/L (98-107); TOTAL PROTEIN 5.2 g/dL (6.3-8.2)
[2020-02-16 10:32] LABS: VLDL CHOLESTEROL 46.4 mg/dL (10-31)
[2020-02-16 10:33] LABS: ANION GAP 4 (5-19)
[2020-02-16 10:35] LABS: DIRECT LDL 118 mg/dL (<100)
[2020-02-16] MEDS ORDERED: CALCIUM GLUC IN NACL, ISO-OSM 1 GM/50 ML RTUPB IV ONE (12:32)
[2020-02-16] MEDS ORDERED: PROMETHAZINE HCL INJ 25 MG/1 ML VIAL IV PRN (14:30)
[2020-02-16] MEDS ORDERED: ONDANSETRON 4 MG TAB.RAPDIS PO PRN (14:30)
[2020-02-16] MEDS ORDERED: ONDANSETRON HCL INJ/PF 4 MG/2 ML SDV IV PRN (14:30)
[2020-02-16 16:41] LABS: CHOLESTEROL 205.34 mg/dL (0-200); TRIGLYCERIDES 183 mg/dL (<150)
[2020-02-16 16:52] LABS: DIRECT LDL 118 mg/dL (<100)
[2020-02-16 16:53] LABS: VLDL CHOLESTEROL 36.6 mg/dL (10-31)
--- NOTE | 2020-02-16 20:20 | PDOC PROGRESS REPORT ---
Subjective Date:: 02/16/20 Subjective:: NAEO. Continues to have abdominal pain. Denies fevers/chills. Distention is improving and pain is improving. Denies nausea/vomiting. Passing gas, but no BM. Reason For Visit: ACUTE PANCREATITIS Physical Exam Vital Signs: Temp Pulse Resp BP Pulse Ox 98.8 F 105 H 19 122/81 95 02/16/20 15:35 02/16/20 15:35 02/16/20 15:35 02/16/20 15:35 02/16/20 15:35 Intake & Output 02/15/20 02/16/20 02/17/20 06:59 06:59 06:59 Intake Total 1999 3140 2008 Output Total 1520 1350 Balance 1999 1620 659 Weight 79.7 kg 80.2 kg 80.2 kg General appearance: PRESENT: no acute distress, cooperative Eye exam: ABSENT: scleral icterus Mouth exam: PRESENT: dry mucosa Throat exam: ABSENT: post pharyngeal erythema Neck exam: ABSENT: JVD Respiratory exam: PRESENT: clear to auscultation landry Cardiovascular exam: PRESENT: RRR GI/Abdominal exam: PRESENT: distended, normal bowel sounds, soft. ABSENT: firm, guarding, rebound, rigid, tenderness Extremities exam: ABSENT: pedal edema Musculoskeletal exam: PRESENT: ambulatory Neurological exam: PRESENT: alert, awake, oriented to person, oriented to place, oriented to time, oriented to situation Psychiatric exam: PRESENT: appropriate affect Skin exam: ABSENT: jaundice, rash Results Laboratory Results: 02/16/20 09:40 02/16/20 09:40 02/16/20 02/16/20 02/16/20 03:40 09:40 09:40 WBC 3.9 L RBC 3.54 L Hgb 12.0 L D Hct 34.5 L MCV 97 MCH 33.9 H MCHC 34.8 RDW 15.3 H Plt Count 103 L Sodium 130.0 L Potassium 3.7 Chloride 99 Carbon Dioxide 27 Anion Gap 4 L BUN 8 Creatinine 0.77 Est GFR ( Amer) > 60 Glucose 96 Calcium 7.8 L Ionized Calcium [place] Phosphorus 1.6 L Magnesium 2.2 Total Bilirubin 1.4 H AST 61 H Alkaline Phosphatase 59 Total Protein 5.2 L Albumin 2.7 L Triglycerides 284 H 232 H Cholesterol 231.89 H 220.71 H LDL Cholesterol Direct 93 118 H VLDL Cholesterol 56.8 H 46.4 H HDL Cholesterol 31 L 32 L 02/16/20 02/16/20 09:40 15:15 WBC RBC Hgb Hct MCV MCH MCHC RDW Plt Count Sodium Potassium Chloride Carbon Dioxide Anion Gap BUN Creatinine Est GFR ( Amer) Glucose Calcium Ionized Calcium [place] 1.12 L Phosphorus Magnesium Total Bilirubin AST Alkaline Phosphatase Total Protein Albumin Triglycerides 183 H Cholesterol 205.34 H LDL Cholesterol Direct 118 H VLDL Cholesterol 36.6 H HDL Cholesterol 28 L Impressions: Abdomen/Pelvis CT 02/14/20 12:08 IMPRESSION: 1. Acute pancreatitis with small to moderate ascites which is likely reactive. Evaluation of the pancreatic parenchyma is limited without IV contrast. There is subtle hypodense attenuation in the pancreatic head suggestive of developing pancreatic necrosis. 2. Severe hepatic steatosis. 3. Small right pleural effusion. Assessment and Plan - Plan Summary Summary: CARLOS FLYNN JR is a 29 year old male with PMH of EtOH abuse who p/w abdominal pain x3 days. Patient has a history of daily drinking for several years, drinks about 6-8 8 ounce cans of alcoholic beverages daily, about 4 days ago he started having abdominal pain and he stopped drinking, since then he has been having worsening abdominal pain, abdominal distention, loss of appetite, diarrhea, nausea and vomiting. Abdominal pain is explained as diffuse, stabbing, 10/10 on severity scale, radiating to back, better with certain body position, constant, worse with eating or movement. Also complaining of being very anxious, having diffuse muscular spasms especially in the neck. Patient has history of multiple alcohol withdrawals however has never been hospitalized for alcohol withdrawal, he also has history of alcohol induced seizure but is not on any antiseizure medications. Patient denies any fever, shortness of breath, chest pain. In ED he was noted to be hyponatremic, with elevated BUN and creatinine, severe hypocalcemia, elevated liver chemistries, and lipase of 1986.[address] abdomen patient was noted to have acute pancreatitis with small to moderate ascites and subtle hypodense attenuation in the pancreatic head possibly developing pancreatic necrosis, slight pleural effusion and severe hepatic steatosis. Hospitalist was consulted for admission. Today, he still in pain but less from admission. Afebrile. No withdrawal symptoms. Triglycerides noted to be <500 today so insulin gtt stopped. IVF switched to LR at 250 ml/hr as he appears dry on exam. NPO status changed and diet ordered (CLD) as he is improving steadily. Continue antibiotics for now. Continue CIWA protocol. Alcohol cessation counseling provided. - Time Time Spent with patient: 35 or more minutes Anticipated Discharge Disposition: Home, Self Care Anticipated Discharge Timeframe: within 72 hours
[2020-02-16] MEDS: CEFTRIAXONE 1 GM/D5W RTU 1 GM/50 ML RTUPB IV SCH (21:50)
[2020-02-16] MEDS: RINGERS SOLUTION,LACTATED 1,000 ML IV PRN (21:51)
[2020-02-17] MEDS: MORPHINE SULFATE 10 MG/ML INJ IV PRN ×8 (02:36→17:53)
[2020-02-17 03:10] LABS: HEMATOCRIT 30.9 % (37.9-51.0); HEMOGLOBIN 10.8 g/dL (13.5-17.0); MEAN CORPUSCULAR HEMOGLOBIN 34.3 pg (27.0-33.4); MEAN CORPUSCULAR HGB CONC 35.1 g/dL (32.0-36.0); MEAN CORPUSCULAR VOLUME 98 fl (80-97); PLATELET COUNT 105 10^3/uL (150-450); RED BLOOD COUNT 3.17 10^6/uL (4.35-5.55); RED CELL DISTRIBUTION WIDTH 15.4 % (11.5-14.0); WHITE BLOOD COUNT 4.2 10^3/uL (4.0-10.5)
[2020-02-17 03:40] LABS: TRIGLYCERIDES 159 mg/dL (<150)
[2020-02-17 03:41] LABS: ALBUMIN 2.6 g/dL (3.5-5.0); ALKALINE PHOSPHATASE 57 U/L (38-126); ASPARTATE AMINO TRANSFERASE 73 U/L (17-59); BILIRUBIN,DIRECT 0.7 mg/dL (0.0-0.4); BILIRUBIN,TOTAL 1.2 mg/dL (0.2-1.3); BLOOD UREA NITROGEN 6 mg/dL (7-20); CALCIUM 8.1 mg/dL (8.4-10.2); CARBON DIOXIDE 30 mmol/L (22-30); CHLORIDE 100 mmol/L (98-107); GLUCOSE 104 mg/dL (75-110)
[2020-02-17 03:45] LABS: ANION GAP 2 (5-19)
[2020-02-17 03:51] LABS: DIRECT LDL 135 mg/dL (<100)
[2020-02-17 03:57] LABS: VLDL CHOLESTEROL 31.8 mg/dL (10-31)
[2020-02-17] MEDS: PANTOPRAZOLE SODIUM 40 MG TABLET.DR PO SCH ×2 (05:14→17:54)
[2020-02-17] MEDS: HEPARIN SOD (PORCINE) 5,000 UNIT/ML 1 ML VIAL SUBCUT SCH ×3 (05:15→21:41)
[2020-02-17] MEDS: RINGERS SOLUTION,LACTATED 1,000 ML IV PRN (05:48)
[2020-02-17 06:36] LABS: HEPATITS B SURFACE ANTIGEN Negative (Negative)
[2020-02-17 07:11] LABS: HEPATITIS C VIRUS ANTIBODY <0.1 s/co ratio (0.0-0.9)
[2020-02-17] MEDS: FOLIC ACID 1 MG TABLET PO SCH (09:56)
[2020-02-17] MEDS: THIAMINE HCL 100 MG TABLET PO SCH (09:56)
[2020-02-17] MEDS: CALCIUM GLUC IN NACL, ISO-OSM 1 GM/50 ML RTUPB IV SCH ×2 (12:09→14:35)
[2020-02-17] MEDS: OXYCODONE HCL IR 5 MG TABLET PO PRN ×2 (13:02→19:41)
--- NOTE | 2020-02-17 15:43 | RADIOLOGY REPORT (SQ) ---
EXAM DESCRIPTION: CT ABD/PELVIS WITH IV ONLY IMAGES COMPLETED DATE/TIME: 02/17/2020 11:54 am REASON FOR STUDY: pancreatitis, concern for necrosis, worse symptoms COMPARISON: 02/14/2020 TECHNIQUE: CT scan of the abdomen and pelvis performed using helical scanning technique with dynamic intravenous contrast injection. No oral contrast. Images reviewed with lung, soft tissue, and bone windows. Reconstructed coronal and sagittal MPR images reviewed. Delayed images for evaluation of the urinary system also acquired. All images stored on PACS. All CT scanners at this facility use dose modulation, iterative reconstruction, and/or weight based d osing when appropriate to reduce radiation dose to as low as reasonably achievable (ALARA). [facility]: Dose Right [facility]: CareDose [facility]: Dose Right [facility]: Teradose 4D [facility]: Inspiris CONTRAST TYPE AND DOSE: contrast/concentration: Isovue 350.00 mmol/ml; Total Contrast Delivered: 100 .0 ml; Total Saline Delivered: 45.0 ml RENAL FUNCTION: Creatinine 0.74 RADIATION DOSE: CT Rad equipment meets quality standard of care and radiation dose reduction techniq ues were employed. CTDIvol: 7.7 - 7.7 mGy. DLP: 863 mGy-cm.. LIMITATIONS: None. FINDINGS: LOWER CHEST: Small to moderate right and trace left pleural effusions. Right lower lobe c onsolidation probably representing atelectasis. Mild left basilar atelectasis also demonstrated. LIVER: Liver is mildly enlarged. No focal suspicious liver lesion. SPLEEN: Normal size. No focal lesions. PANCREAS: Diffuse peripancreatic fat stranding and fluid is again demonstrated. The pancreatic paren chyma enhances without definite focal necrosis identified. Peripancreatic fluid appears to be slight ly increased from prior examination. Question of increased organization/ loculation of the fluid col lections with possible developing wall along the anterolateral aspect of fluid along the greater curv ature/ inferior aspect of the stomach (series 5, images 26 -31). Free fluid extends along the [place] lic gutters and into the pelvis. GALLBLADDER: No identified stones by CT criteria. No inflammatory changes to suggest cholecystitis. ADRENAL GLANDS: No significant masses or asymmetry. RIGHT KIDNEY AND URETER: No solid masses. No significant calcifications. No hydronephrosis or hyd roureter. LEFT KIDNEY AND URETER: No solid masses. No significant calcifications. No hydronephrosis or hydr oureter. AORTA AND VESSELS: No aneurysm. No dissection. Renal arteries, SMA, celiac without stenosis. RETROPERITONEUM: No adenopathy or hemorrhage. BOWEL AND PERITONEAL CAVITY: Ascites and fluid collections as above. No bowel dilatation or signific ant wall thickening. APPENDIX: Normal. PELVIS: No mass. Normal bladder. ABDOMINAL WALL: Tiny fat containing umbilical hernia. BONES: Chronic posterior left rib fracture. No destructive bone lesions. OTHER: No other significant finding. IMPRESSION: 1. Findings compatible with pancreatitis again demonstrated with increased in ascites a nd possible increase in organization of the peripancreatic fluid, most pronounced along the inferior aspect/greater curvature of the stomach. 2. Pancreatic parenchyma enhances without definite evidence of necrosis. TECHNICAL DOCUMENTATION: JOB ID: [id number] Quality ID # [id number]: Final reports with documentation of one or more dose reduction techniques (e.g., Au tomated exposure control, adjustment of the mA and/or kV according to patient size, use of iterative reconstruction technique) 2010 [employer]- All Rights Reserved Reading location - IP/workstation name: [email or web address]
[2020-02-17] MEDS ORDERED: FUROSEMIDE INJ/PF 20 MG/2 ML SDV IV ONE (20:35)
--- NOTE | 2020-02-17 20:41 | PDOC PROGRESS REPORT ---
Subjective Date:: 02/17/20 Subjective:: NAEO. He is having increasing SOB, abdominal distention, scrotal edema and leg edema. Abdominal pain remains unchanged. Afebrile. Reason For Visit: ACUTE PANCREATITIS Physical Exam Vital Signs: Temp Pulse Resp BP Pulse Ox 98.2 F 100 18 127/82 H 99 02/17/20 16:00 02/17/20 16:00 02/17/20 16:00 02/17/20 16:00 02/17/20 16:00 Intake & Output 02/16/20 02/17/20 02/18/20 06:59 06:59 06:59 Intake Total 3140 4009 980 Output Total 1520 2150 1320 Balance 1620 1859 -340 Weight 80.2 kg 87.9 kg 87.9 kg General appearance: PRESENT: no acute distress, cooperative Eye exam: ABSENT: periorbital swelling, scleral icterus Mouth exam: PRESENT: moist Throat exam: ABSENT: post pharyngeal erythema Neck exam: ABSENT: JVD Respiratory exam: PRESENT: crackles. ABSENT: rhonchi, wheezes Cardiovascular exam: PRESENT: RRR GI/Abdominal exam: PRESENT: ascites, distended, normal bowel sounds, soft, tenderness - diffusely. ABSENT: guarding, rebound, rigid Rectal exam: PRESENT: deferred Gentrourinary exam: PRESENT: scrotal swelling. ABSENT: indwelling catheter Extremities exam: PRESENT: +1 edema Musculoskeletal exam: PRESENT: ambulatory Neurological exam: PRESENT: alert, awake, oriented to person, oriented to place, oriented to time, oriented to situation Psychiatric exam: PRESENT: anxious Skin exam: ABSENT: jaundice Results Laboratory Results: 02/17/20 03:00 02/17/20 03:00 02/17/20 02/17/20 02/17/20 03:00 03:00 03:00 WBC 4.2 RBC 3.17 L Hgb 10.8 L Hct 30.9 L MCV 98 H MCH 34.3 H MCHC 35.1 RDW 15.4 H Plt Count 105 L Sodium 131.6 L Potassium 4.0 Chloride 100 Carbon Dioxide 30 Anion Gap 2 L BUN 6 L Creatinine 0.74 Est GFR ( Amer) > 60 Glucose 104 Calcium 8.1 L Ionized Calcium Marsha Magnesium 2.0 Total Bilirubin 1.2 AST 73 H Alkaline Phosphatase 57 Total Protein 5.0 L Albumin 2.6 L Triglycerides 159 H Cholesterol 200.70 H LDL Cholesterol Direct 135 H VLDL Cholesterol 31.8 H HDL Cholesterol 28 L Lipase 1009.9 H 02/17/20 03:00 WBC RBC Hgb Hct MCV MCH MCHC RDW Plt Count Sodium Potassium Chloride Carbon Dioxide Anion Gap BUN Creatinine Est GFR ( Amer) Glucose Calcium Ionized Calcium Marsha 1.10 L Magnesium Total Bilirubin AST Alkaline Phosphatase Total Protein Albumin Triglycerides Cholesterol LDL Cholesterol Direct VLDL Cholesterol HDL Cholesterol Lipase Impressions: Abdomen/Pelvis CT 02/17/20 00:00 IMPRESSION: 1. Findings compatible with pancreatitis again demonstrated with increased in ascites and possible increase in organization of the peripancreatic fluid, most pronounced along the inferior aspect/greater curvature of the stomach. 2. Pancreatic parenchyma enhances without definite evidence of necrosis. Assessment and Plan - Diagnosis (1) LITA (acute kidney injury) Is this a current diagnosis for this admission?: Yes (2) Acute alcoholic pancreatitis Qualifiers: Acute pancreatitis complication: uninfected necrosis Qualified Code(s): K85.21 - Alcohol induced acute pancreatitis with uninfected necrosis Is this a current diagnosis for this admission?: Yes (3) Alcohol abuse Is this a current diagnosis for this admission?: Yes (4) Hepatic steatosis Is this a current diagnosis for this admission?: Yes (5) Hypertriglyceridemia Is this a current diagnosis for this admission?: Yes (6) Hypocalcemia Is this a current diagnosis for this admission?: Yes - Plan Summary Summary: CARLOS FLYNN JR is a 29 year old male with PMH of EtOH abuse who p/w abdominal pain x3 days. Patient has a history of daily drinking for several years, drinks about 6-8 8 ounce cans of alcoholic beverages daily, about 4 days ago he started having abdominal pain and he stopped drinking, since then he has been having worsening abdominal pain, abdominal distention, loss of appetite, diarrhea, nausea and vomiting. Abdominal pain is explained as diffuse, stabbing, 10/10 on severity scale, radiating to back, better with certain body position, constant, worse with eating or movement. Also complaining of being very anxious, having diffuse muscular spasms especially in the neck. Patient has history of multiple alcohol withdrawals however has never been hospitalized for alcohol withdrawal, he also has history of alcohol induced seizure but is not on any antiseizure medications. Patient denies any fever, shortness of breath, chest pain. In ED he was noted to be hyponatremic, with elevated BUN and creatinine, severe hypocalcemia, elevated liver chemistries, and lipase of 1986.[address] abdomen patient was noted to have acute pancreatitis with small to moderate ascites and subtle hypodense attenuation in the pancreatic head possibly developing pancreatic necrosis, slight pleural effusion and severe hepatic steatosis. Hospitalist was consulted for admission. Today, he still having abdominal pain and distention. Afebrile. No withdrawal symptoms. Triglycerides noted to be <500 yesterday so insulin gtt stopped. IVF have been discontinued as he appears quite volume overloaded on examination and single dose of LAsix 20 mg IV x1 written. Tolerating CLD. Repeat CT A/P notable for bilateral effusions, ascites, edema. No evidence of pancreatic necrosis, but he does have potential pseudocyst developing? CTM closely. Continue CIWA protocol. Alcohol cessation counseling provided. LITA resolved with IVF. Electrolytes repleted. - Time Time Spent with patient: 35 or more minutes Anticipated Discharge Disposition: Home, Self Care Anticipated Discharge Timeframe: within 72 hours
[2020-02-17] MEDS: HYDROMORPHONE HCL INJ/PF 2 MG/ML AMPULE IV PRN ×2 (20:43→22:57)
[2020-02-17] MEDS: CEFTRIAXONE 1 GM/D5W RTU 1 GM/50 ML RTUPB IV SCH (21:41)
[2020-02-18] MEDS: HYDROMORPHONE HCL INJ/PF 2 MG/ML AMPULE IV PRN ×10 (01:49→23:16)
[2020-02-18] MEDS: OXYCODONE HCL IR 5 MG TABLET PO PRN ×2 (01:53→08:42)
[2020-02-18] MEDS: HEPARIN SOD (PORCINE) 5,000 UNIT/ML 1 ML VIAL SUBCUT SCH ×3 (05:33→21:23)
[2020-02-18] MEDS: PANTOPRAZOLE SODIUM 40 MG TABLET.DR PO SCH (06:41)
[2020-02-18] MEDS ORDERED: PHARMACY COMMUNICATION ORDER MC NR ×3 (10:15→11:00)
[2020-02-18] MEDS ORDERED: ACETAMINOPHEN 325 MG TABLET NG PRN (10:22)
[2020-02-18] MEDS ORDERED: MAGNESIUM HYDROXIDE SUSP 30 ML UDCUP NG PRN (10:30)
[2020-02-18] MEDS ORDERED: ONDANSETRON 4 MG TAB.RAPDIS NG PRN (10:30)
[2020-02-18] MEDS ORDERED: TEMAZEPAM 15 MG CAPSULE NG PRN (10:30)
[2020-02-18] MEDS ORDERED: OXYCODONE HCL IR 5 MG TABLET NG PRN (10:30)
--- NOTE | 2020-02-18 10:47 | PDOC CONSULTATION ---
Consultation Consult Date: 02/18/20 Provider Consulted: MONI JACK Consult reason:: Acute alcoholic pancreatitis History of Present Illness Admission Date/PCP: 02/14/20 20:24 History of Present Illness: CRALOS FLYNN JR is a 29 year old male healthy, with a first episode of acute alcoholic pancreatitis. The patient reports has been drinking since age 11 and is drinking binges have been getting worse during the past years. He presented emergency room complaining of severe abdominal pain. The CT scan abdomen pelvis done on the day of admission on February 13 demonstrated acute pancreatitis; worsening of pancreatitis was noted on CT scan of February 16. His fever profile is within normal limits and jhis lipase is currently 1000, down from 1900 on the day of admission. Past Medical History Cardiac Medical History: Reports: Heart Murmur - as infant Psychiatric Medical History: Reports: Depression Social History Smoking Status: Unknown if Ever Smoked Cigarettes Packs Per Day: 1 Electronic Cigarette use?: Yes Number of Years Smokin Last Time Smoked: 02/14/2020 Frequency of Alcohol Use: Heavy Hx Recreational Drug Use: Yes Drugs: Cocaine, Marijuana Hx Prescription Drug Abuse: Yes Family History Family History: Reviewed & Not Pertinent, DM, Other - uncle [place] in 50's Parental Family History Reviewed: No Children Family History Reviewed: No Sibling(s) Family History Reviewed.: No Medication/Allergy Home Medications: No Home Medications 02/15/20 Allergies/Adverse Reactions: No Known Allergies Allergy (Verified 11/12/19 08:22) Physical Exam Vital Signs: Temp Pulse Resp BP Pulse Ox 99.2 F 118 H 16 133/72 H 91 L 02/18/20 07:37 02/18/20 07:37 02/18/20 07:37 02/18/20 07:37 02/18/20 07:37 Intake & Output 02/17/20 02/18/20 02/19/20 06:59 06:59 06:59 Intake Total 4009 1030 Output Total 2150 1320 Balance 1859 -290 Weight 87.9 kg 85.4 kg General appearance: PRESENT: mild distress, thin Head exam: PRESENT: atraumatic Eye exam: PRESENT: EOMI Mouth exam: PRESENT: neck supple Respiratory exam: PRESENT: clear to auscultation landry Cardiovascular exam: PRESENT: RRR GI/Abdominal exam: PRESENT: diminished bowel sounds, distended, other - Abdomen tense for ascites, slightly tender, no masses, no peritoneal signs Rectal exam: PRESENT: deferred Extremities exam: PRESENT: full ROM Musculoskeletal exam: PRESENT: full ROM Neurological exam: PRESENT: alert, awake, CN II-XII grossly intact Skin exam: PRESENT: warm Results Laboratory Results: 02/17/20 03:00 02/17/20 03:00 Impressions: Abdomen/Pelvis CT 02/17/20 00:00 IMPRESSION: 1. Findings compatible with pancreatitis again demonstrated with increased in ascites and possible increase in organization of the peripancreatic fluid, most pronounced along the inferior aspect/greater curvature of the stomach. 2. Pancreatic parenchyma enhances without definite evidence of necrosis. Assessment & Plan - Diagnosis (1) Acute alcoholic pancreatitis Qualifiers: Acute pancreatitis complication: uninfected necrosis Qualified Code(s): K85.21 - Alcohol induced acute pancreatitis with uninfected necrosis Is this a current diagnosis for this admission?: Yes (2) Hepatic steatosis Is this a current diagnosis for this admission?: Yes - Plan Summary Plan Summary: Assessment: First episode of acute alcoholic pancreatitis CT scan done on February 13 February 16 reveals inflammatory changes of the pancreas together with worsening of ascites, liver steatosis Improving today lipase down to 2000 from the 1900 on admission CBC liver profile remaining blood work within normal limits Physical exam demonstrates a tense abdomen, without peritoneal signs, as per ascites Plan: Complete n.p.o. NG tube PICC line TPN Montano catheter inserted Discontinue IV medications, antibiotics, and Lasix Continue normal saline 150 mL/h Once TPN is started, total fluid rate should be about 150 cc/h
[2020-02-18] MEDS ORDERED: FUROSEMIDE INJ/PF 20 MG/2 ML SDV IV ONE (11:00)
[2020-02-18 11:10] LABS: HEMATOCRIT 36.4 % (37.9-51.0); HEMOGLOBIN 12.4 g/dL (13.5-17.0); MEAN CORPUSCULAR HEMOGLOBIN 32.9 pg (27.0-33.4); MEAN CORPUSCULAR VOLUME 97 fl (80-97); PLATELET COUNT 191 10^3/uL (150-450); RED BLOOD COUNT 3.75 10^6/uL (4.35-5.55); RED CELL DISTRIBUTION WIDTH 15.2 % (11.5-14.0); WHITE BLOOD COUNT 7.8 10^3/uL (4.0-10.5)
[2020-02-18 11:21] LABS: ALBUMIN 3.4 g/dL (3.5-5.0); ALKALINE PHOSPHATASE 87 U/L (38-126); ANION GAP 8 (5-19); ASPARTATE AMINO TRANSFERASE 101 U/L (17-59); BILIRUBIN,DIRECT 0.8 mg/dL (0.0-0.4); BILIRUBIN,TOTAL 1.4 mg/dL (0.2-1.3); BLOOD UREA NITROGEN 7 mg/dL (7-20); CALCIUM 8.9 mg/dL (8.4-10.2); CARBON DIOXIDE 32 mmol/L (22-30); CHLORIDE 91 mmol/L (98-107); GLUCOSE 120 mg/dL (75-110); POTASSIUM 3.3 mmol/L (3.6-5.0); TOTAL PROTEIN 6.3 g/dL (6.3-8.2)
[2020-02-18] MEDS ORDERED: HYDROMORPHONE HCL INJ/PF 2 MG/ML AMPULE IV ONE (12:45)
[2020-02-18] MEDS ORDERED: GLUCAGON,HUMAN RECOMB 1 MG INJ IM PRN (13:30)
[2020-02-18] MEDS ORDERED: DEXTROSE 40% GEL 15 GM TUBE X 2 PO PRN (13:30)
[2020-02-18] MEDS ORDERED: DEXTROSE 50%-WATER SYRINGE 25 GM/50 ML DOSE IV PRN (13:30)
[2020-02-18] MEDS ORDERED: DEXTROSE 50%-WATER SYRINGE 12.5 GM/25 ML DOSE IV PRN (13:30)
[2020-02-18] MEDS ORDERED: DEXTROSE 40% GEL 15 GM TUBE PO PRN (13:30)
[2020-02-18] MEDS ORDERED: DEXTROSE 10%-WATER 1,000 ML IV PRN (13:30)
--- NOTE | 2020-02-18 14:18 | RADIOLOGY REPORT (SQ) ---
EXAM DESCRIPTION: KUB/ABDOMEN (SINGLE VIEW) IMAGES COMPLETED DATE/TIME: 02/18/2020 2:06 pm REASON FOR STUDY: Check Placement of NG Tube COMPARISON: None. NUMBER OF VIEWS: One view. TECHNIQUE: Supine radiographic image of the abdomen acquired. LIMITATIONS: None. FINDINGS: Limited view the abdomen is obtained. NG tubes in place. Tip lies in the left upper quad rant. There is dilated small bowel noted. Possibly ileus related to the pancreatitis. IMPRESSION: NG tube is in satisfactory position. TECHNICAL DOCUMENTATION: JOB ID: [id number] 2010 [employer]- All Rights Reserved Reading location - IP/workstation name: [email or web address]
[2020-02-18] MEDS: NORMAL SALINE 1000 ML 1,000 ML IV PRN (14:45)
[2020-02-18] MEDS ORDERED: PHENOL/SODIUM PHENOLATE 100 SPRAY/177 ML BOTTLE PO PRN (15:14)
--- NOTE | 2020-02-18 15:52 | RADIOLOGY REPORT (SQ) ---
EXAM DESCRIPTION: PICC INSERTION IMAGES COMPLETED DATE/TIME: 02/18/2020 3:40 pm REASON FOR STUDY: TPN and freq IV meds COMPARISON: None. FLUOROSCOPY TIME: 1 minutes 40 seconds 2 images saved to PACS. TECHNIQUE: Fluoroscopic and ultrasound guided PICC placement. LIMITATIONS: None. PROCEDURE: After written consent and assessment were obtained, the patient was brought into the fluo roscopy room and placed supine on the table. Ultrasound evaluation of potential access sites were per formed. After successfully identifying a patent right basilic vein, the right arm was prepped and danish ped in a sterile fashion along with the ultrasound probe. The entry site was anesthetized with 1% lid ocaine. A 21 gauge 7 cm needle was advanced through the skin and into the basilic vein under live ult rasound guidance. An ultrasound image was saved to PACS confirming access site. A .018 guide wire w as then inserted through the needle and into the venous system. The needle was then removed and an 11 blade scalpel was used to make a 1cm skin incision. A 5 fr peel-away sheath was advanced over the w marcial and into the venous system. A measurement was then made using the existing wire and live fluorosc opic guidance. The wire was then removed and trimmed. The PICC was advanced through the peel-away she ath and into the venous system. The peel-away sheath was removed and the catheter was adhered to the patients arm with a stat lock. The catheter was then aspirated and flushed and a sterile bandage was placed over the access site. A fluoroscopic spot image was saved to PACS confirming the catheter tip within the superior vena cava. IMPRESSION: SUCCESSFUL PLACEMENT OF A 5 FR DUAL LUMEN 29.5 CM PICC IN THE RIGHT BASILIC VEIN. COMMENT: Patient medication list reviewed: Yes- Quality ID# [id number]:Eligible professional attests to doc umenting in the medical record they obtained, updated, or reviewed the patient's current medications. . Quality ID 145: Final reports for procedures using fluoroscopy that document radiation exposure chica mark, or exposure time and number of fluorographic images (if radiation exposure indices are not avail able) Quality ID #76: The patient was prepped and draped using maximum sterile barrier technique including cap, mask, sterile gown, sterile gloves, a large sterile sheet, hand hygiene, and 2% Chlorhexidine fo r cutaneous antisepsis. When ultrasound is used, sterile ultrasound techniques are followed requiring sterile gel and sterile probes. TECHNICAL DOCUMENTATION: JOB ID: [id number] 2010 [employer]- All Rights Reserved rev Reading location - IP/workstation name: [email or web address]
[2020-02-18] MEDS ORDERED: PANTOPRAZOLE SODIUM 40 MG PACKET.DR NG SCH (17:00)
[2020-02-18] MEDS: INSULIN REG, HUMAN 100 UNIT/ML 3 ML VIAL (PYX) SUBCUT SCH (19:19)
--- NOTE | 2020-02-18 20:41 | PDOC PROGRESS REPORT ---
Subjective Date:: 02/18/20 Subjective:: NAEO. He continues to have severe abdominal pain and distention. He has had progressively worsening BLE edema, scrotal edema and edema in back/sides. He is still urinating. Endorses nausea, no vomiting. Reason For Visit: ACUTE PANCREATITIS Physical Exam Vital Signs: Temp Pulse Resp BP Pulse Ox 98 F 118 H 18 127/83 H 97 02/18/20 16:00 02/18/20 16:00 02/18/20 16:00 02/18/20 16:00 02/18/20 16:00 Intake & Output 02/17/20 02/18/20 02/19/20 06:59 06:59 06:59 Intake Total 4009 1030 500 Output Total 2150 1320 225 Balance 1859 -290 275 Weight 87.9 kg 85.4 kg 85.4 kg General appearance: PRESENT: cooperative, mild distress Head exam: PRESENT: atraumatic Eye exam: ABSENT: scleral icterus Mouth exam: PRESENT: moist Throat exam: ABSENT: post pharyngeal erythema Neck exam: ABSENT: JVD Respiratory exam: PRESENT: crackles, tachypnea. ABSENT: rhonchi, wheezes Cardiovascular exam: PRESENT: tachycardia GI/Abdominal exam: PRESENT: ascites, distended, firm, hypoactive bowel sounds, tenderness. ABSENT: guarding, Dunham's sign, rebound, rigid Rectal exam: PRESENT: deferred Gentrourinary exam: PRESENT: scrotal swelling Extremities exam: PRESENT: +1 edema Musculoskeletal exam: PRESENT: ambulatory Neurological exam: PRESENT: alert, awake, oriented to person, oriented to place, oriented to time, oriented to situation Psychiatric exam: PRESENT: anxious Skin exam: ABSENT: jaundice Results Laboratory Results: 02/18/20 10:54 02/18/20 10:54 02/18/20 02/18/20 02/18/20 10:54 10:54 10:54 WBC 7.8 RBC 3.75 L Hgb 12.4 L Hct 36.4 L MCV 97 MCH 32.9 MCHC 34.0 RDW 15.2 H Plt Count 191 Seg Neutrophils % 68.5 Sodium 130.6 L Potassium 3.3 L Chloride 91 L Carbon Dioxide 32 H Anion Gap 8 BUN 7 Creatinine 0.69 Est GFR ( Amer) > 60 Glucose 120 H Lactic Acid 1.2 Calcium 8.9 Ionized Calcium Marsha Magnesium 2.0 Total Bilirubin 1.4 H AST 101 H Alkaline Phosphatase 87 Total Protein 6.3 Albumin 3.4 L Lipase 962.7 H 02/18/20 10:54 WBC RBC Hgb Hct MCV MCH MCHC RDW Plt Count Seg Neutrophils % Sodium Potassium Chloride Carbon Dioxide Anion Gap BUN Creatinine Est GFR ( Amer) Glucose Lactic Acid Calcium Ionized Calcium Marsha 1.19 Magnesium Total Bilirubin AST Alkaline Phosphatase Total Protein Albumin Lipase Impressions: Abdomen/Pelvis CT 02/17/20 00:00 IMPRESSION: 1. Findings compatible with pancreatitis again demonstrated with increased in ascites and possible increase in organization of the peripancreatic fluid, most pronounced along the inferior aspect/greater curvature of the stomach. 2. Pancreatic parenchyma enhances without definite evidence of necrosis. PICC Line Insertion 02/18/20 00:00 IMPRESSION: SUCCESSFUL PLACEMENT OF A 5 FR DUAL LUMEN 29.5 CM PICC IN THE RIGHT BASILIC VEIN. KUB X-Ray 02/18/20 10:04 IMPRESSION: NG tube is in satisfactory position. Assessment and Plan - Diagnosis (1) LITA (acute kidney injury) Is this a current diagnosis for this admission?: Yes (2) Acute alcoholic pancreatitis Qualifiers: Acute pancreatitis complication: uninfected necrosis Qualified Code(s): K85.21 - Alcohol induced acute pancreatitis with uninfected necrosis Is this a current diagnosis for this admission?: Yes (3) Alcohol abuse Is this a current diagnosis for this admission?: Yes (4) Hepatic steatosis Is this a current diagnosis for this admission?: Yes (5) Hypertriglyceridemia Is this a current diagnosis for this admission?: Yes (6) Hypocalcemia Is this a current diagnosis for this admission?: Yes (7) Ileus Is this a current diagnosis for this admission?: Yes (8) Ascites Qualifiers: Ascites type: other type Qualified Code(s): R18.8 - Other ascites Is this a current diagnosis for this admission?: Yes - Plan Summary Summary: CARLOS FLYNN JR is a 29 year old male with PMH of EtOH abuse who p/w abdominal pain x3 days. Patient has a history of daily drinking for several years, drinks about 6-8 8 ounce cans of alcoholic beverages daily, about 4 days ago he started having abdominal pain and he stopped drinking, since then he has been having worsening abdominal pain, abdominal distention, loss of appetite, diarrhea, nausea and vomiting. Abdominal pain is explained as diffuse, stabbing, 10/10 on severity scale, radiating to back, better with certain body position, constant, worse with eating or movement. In ED he was noted to be hyponatremic, with elevated BUN and creatinine, hypocalcemia, elevated liver chemistries, and lipase of 1986. On CT abdomen patient was noted to have acute pancreatitis with small to moderate ascites and subtle hypodense attenuation in the pancreatic head possibly developing pancreatic necrosis, slight pleural effusion and severe hepatic steatosis. Trig were elevated and he was started on IVF, insulin gtt and made NPO. Acute Alcoholic Pancreatitis c/b Ileus: Over the course of his hospitalizatoin, he has had severe abdominal pain. Abdominal distention has progressively worsened. He has remained afebrile, hemodynamically stable, with improvement in labs. Triglycerides noted to be <500 so insulin gtt stopped. Repeat CT A/P performed 02/16 notable for bilateral effusions, ascites, no evidence of pancreatic necrosis, but he does have potential pseudocyst developing. On 02/17, due to increasingly tense abdomen and concern for ileus and poor UOP, Montano catheter and NGT were placed, and surgery was consulted. Alcohol Abuse: he has had no evidence of withdrawal this hospitalization. Continue CIWA protocol. Alcohol cessation counseling provided. LFT Elevation: likely due to alcohol abuse. LITA: resolved with IVF. F/E/N: he has been NPO for several days now. He remains on continuous IVF. Electrolytes repleted. PICC placed on 02/17 and pharmacy consulted for TPN dosing. DVT ppx: heparin - Time Time Spent with patient: 35 or more minutes Anticipated Discharge Disposition: Home, Self Care Anticipated Discharge Timeframe: within 72 hours
[2020-02-18] MEDS: FOLIC ACID 1 MG TABLET PO SCH (22:58)
[2020-02-18] MEDS: THIAMINE HCL 100 MG TABLET PO SCH (22:58)
[2020-02-18] MEDS: LORAZEPAM INJ 2 MG/1 ML VIAL IV PRN (23:16)
[2020-02-18] MEDS: AMINO ACIDS 5 %/DEXTROSE 20 % 1,000 ML IV PRN (23:34)
[2020-02-19] MEDS: INSULIN REG, HUMAN 100 UNIT/ML 3 ML VIAL (PYX) SUBCUT SCH ×5 (00:50→23:55)
[2020-02-19] MEDS: HYDROMORPHONE HCL INJ/PF 2 MG/ML AMPULE IV PRN ×9 (02:38→22:45)
[2020-02-19] MEDS: HEPARIN SOD (PORCINE) 5,000 UNIT/ML 1 ML VIAL SUBCUT SCH ×3 (05:00→21:51)
[2020-02-19 05:51] LABS: HEMATOCRIT 31.4 % (37.9-51.0); MEAN CORPUSCULAR HEMOGLOBIN 33.9 pg (27.0-33.4); MEAN CORPUSCULAR HGB CONC 35.1 g/dL (32.0-36.0); MEAN CORPUSCULAR VOLUME 97 fl (80-97); PLATELET COUNT 238 10^3/uL (150-450); RED BLOOD COUNT 3.25 10^6/uL (4.35-5.55); RED CELL DISTRIBUTION WIDTH 14.9 % (11.5-14.0); WHITE BLOOD COUNT 10.5 10^3/uL (4.0-10.5)
[2020-02-19 06:05] LABS: ALBUMIN 2.9 g/dL (3.5-5.0); ALKALINE PHOSPHATASE 90 U/L (38-126); ANION GAP 9 (5-19); ASPARTATE AMINO TRANSFERASE 68 U/L (17-59); BILIRUBIN,DIRECT 0.6 mg/dL (0.0-0.4); BILIRUBIN,TOTAL 1.1 mg/dL (0.2-1.3); BLOOD UREA NITROGEN 7 mg/dL (7-20); CALCIUM 8.6 mg/dL (8.4-10.2); CARBON DIOXIDE 30 mmol/L (22-30); CHLORIDE 93 mmol/L (98-107); GLUCOSE 87 mg/dL (75-110); PHOSPHORUS 3.6 mg/dL (2.5-4.5); POTASSIUM 3.6 mmol/L (3.6-5.0); TOTAL PROTEIN 5.7 g/dL (6.3-8.2)
[2020-02-19] MEDS ORDERED: NORMAL SALINE 10 ML SDV (AFTER EACH USE) IV PRN (08:30)
[2020-02-19] MEDS ORDERED: THIAMINE HCL 100 MG TABLET NG SCH (10:00)
[2020-02-19] MEDS ORDERED: FOLIC ACID 1 MG TABLET NG SCH (10:00)
--- NOTE | 2020-02-19 10:01 | PDOC PROGRESS REPORT ---
Subjective Date:: 02/19/20 Reason For Visit: ACUTE PANCREATITIS Patient feels better; minimal drainage from NG tube. PICC line installed and TPN initiated. Moderate tachycardia. Urine output low but adequate, dark Physical Exam Vital Signs: Temp Pulse Resp BP Pulse Ox 98.1 F 123 H 17 131/79 H 95 02/19/20 08:10 02/19/20 08:10 02/19/20 08:10 02/19/20 08:10 02/19/20 08:10 Intake & Output 02/18/20 02/19/20 02/20/20 06:59 06:59 06:59 Intake Total 1030 500 Output Total 1320 775 Balance -290 -275 Weight 85.4 kg 84.9 kg General appearance: PRESENT: mild distress, other - Patient moving around in bed and sitting up at bedside. Accompanied by mother GI/Abdominal exam: PRESENT: other - Abdomen is distended, diffusely tender but without rigidity or peritoneal signs. Results Laboratory Results: 02/19/20 05:20 02/19/20 05:20 02/18/20 02/18/20 02/18/20 10:54 10:54 10:54 WBC 7.8 RBC 3.75 L Hgb 12.4 L Hct 36.4 L MCV 97 MCH 32.9 MCHC 34.0 RDW 15.2 H Plt Count 191 Seg Neutrophils % 68.5 Sodium 130.6 L Potassium 3.3 L Chloride 91 L Carbon Dioxide 32 H Anion Gap 8 BUN 7 Creatinine 0.69 Est GFR ( Amer) > 60 Glucose 120 H Lactic Acid 1.2 Calcium 8.9 Ionized Calcium Marsha Phosphorus Magnesium 2.0 Total Bilirubin 1.4 H AST 101 H Alkaline Phosphatase 87 Total Protein 6.3 Albumin 3.4 L Lipase 962.7 H 02/18/20 02/19/20 02/19/20 10:54 05:20 05:20 WBC 10.5 RBC 3.25 L Hgb 11.0 L Hct 31.4 L MCV 97 MCH 33.9 H MCHC 35.1 RDW 14.9 H Plt Count 238 Seg Neutrophils % Sodium 131.5 L Potassium 3.6 Chloride 93 L Carbon Dioxide 30 Anion Gap 9 BUN 7 Creatinine 0.63 Est GFR ( Amer) > 60 Glucose 87 Lactic Acid Calcium 8.6 Ionized Calcium Marsha 1.19 Phosphorus 3.6 Magnesium 1.9 Total Bilirubin 1.1 AST 68 H Alkaline Phosphatase 90 Total Protein 5.7 L Albumin 2.9 L Lipase 656.7 H Impressions: Abdomen/Pelvis CT 02/17/20 00:00 IMPRESSION: 1. Findings compatible with pancreatitis again demonstrated with increased in ascites and possible increase in organization of the peripancreatic fluid, most pronounced along the inferior aspect/greater curvature of the stomach. 2. Pancreatic parenchyma enhances without definite evidence of necrosis. PICC Line Insertion 02/18/20 00:00 IMPRESSION: SUCCESSFUL PLACEMENT OF A 5 FR DUAL LUMEN 29.5 CM PICC IN THE RIGHT BASILIC VEIN. KUB X-Ray 02/18/20 10:04 IMPRESSION: NG tube is in satisfactory position. Assessment & Plan - Diagnosis (1) Acute alcoholic pancreatitis Qualifiers: Acute pancreatitis complication: uninfected necrosis Qualified Code(s): K85.21 - Alcohol induced acute pancreatitis with uninfected necrosis Is this a current diagnosis for this admission?: Yes Plan: Impression: Hospital day 5 for acute pancreatitis, with pancreatic ascites, right pleural effusion, incrementally improved while n.p.o., now on TPN, bowel rest. Recommendations: 1. Continue current therapy especially n.p.o. Monitor urine output-additional fluids may be required. 2. Explained to patient and his mother at bedside, who is familiar with pancreatitis, patient will be hospitalized for several more days. No indication for surgical intervention. We will continue to follow patient with the primary care team. (2) LITA (acute kidney injury) Is this a current diagnosis for this admission?: Yes (3) Alcohol withdrawal Qualifiers: Complication of substance-induced condition: uncomplicated Qualified Code(s): F10.230 - Alcohol dependence with withdrawal, uncomplicated Is this a current diagnosis for this admission?: Yes (4) Ascites Qualifiers: Ascites type: other type Qualified Code(s): R18.8 - Other ascites - Time Anticipated Discharge Disposition: Home, Self Care Anticipated Discharge Timeframe: To be dete
[2020-02-19] MEDS: FAT EMULSIONS 250 ML IV SCH (10:52)
[2020-02-19] MEDS: NORMAL SALINE 10 ML SDV (SCHEDULED) IV SCH ×2 (10:53→21:52)
[2020-02-19 11:56] LABS: ABSOLUTE LYMPHOCYTES# (MANUAL) 1.7 10^3/uL (0.5-4.7); ABSOLUTE MONOCYTES # (MANUAL) 1.3 10^3/uL (0.1-1.4); BAND NEUTROPHILS % (MANUAL) 5 % (3-5); BASOPHILS % (MANUAL) 0 % (0-2); EOSINOPHILS % (MANUAL) 4 % (0-6); LYMPHOCYTES % (MANUAL) 22 % (13-45); METAMYELOCYTES % (MANUAL) 1 % (0-1); MONOCYTES % (MANUAL) 17 % (3-13); POLYCHROMASIA SLIGHT; SEGMENTED NEUTROPHILS % (MAN) 51 % (42-78); TOTAL CELLS COUNTED 100
[2020-02-19 11:57] LABS: ANISOCYTOSIS SLIGHT; PLATELET COMMENT ADEQUATE
--- NOTE | 2020-02-19 19:15 | PDOC PROGRESS REPORT ---
Subjective Date:: 02/19/20 Subjective:: NAEO. Pain is much improved today. Distention of abd also improving. Reason For Visit: ACUTE PANCREATITIS Physical Exam Vital Signs: Temp Pulse Resp BP Pulse Ox 98.6 F 107 H 17 126/60 H 92 02/19/20 16:08 02/19/20 16:08 02/19/20 16:08 02/19/20 16:08 02/19/20 16:08 Intake & Output 02/18/20 02/19/20 02/20/20 06:59 06:59 06:59 Intake Total 1030 500 Output Total 1320 1225 725 Balance -290 -725 -725 Weight 85.4 kg 84.9 kg General appearance: PRESENT: no acute distress, cooperative Eye exam: ABSENT: scleral icterus Mouth exam: PRESENT: moist Throat exam: ABSENT: post pharyngeal erythema Neck exam: ABSENT: JVD Respiratory exam: PRESENT: crackles, unlabored Cardiovascular exam: PRESENT: tachycardia GI/Abdominal exam: PRESENT: ascites, distended, normal bowel sounds, soft. ABSENT: firm, guarding, rebound, rigid Gentrourinary exam: PRESENT: indwelling catheter Extremities exam: PRESENT: pedal edema Neurological exam: PRESENT: alert, awake, oriented to person, oriented to place, oriented to time, oriented to situation Psychiatric exam: PRESENT: appropriate affect Skin exam: ABSENT: jaundice Results Laboratory Results: 02/19/20 05:20 02/19/20 05:20 02/18/20 02/19/20 02/19/20 10:54 05:20 05:20 WBC 7.8 10.5 RBC 3.75 L 3.25 L Hgb 12.4 L 11.0 L Hct 36.4 L 31.4 L MCV 97 97 MCH 32.9 33.9 H MCHC 34.0 35.1 RDW 15.2 H 14.9 H Plt Count 191 238 Seg Neutrophils % Sodium 131.5 L Potassium 3.6 Chloride 93 L Carbon Dioxide 30 Anion Gap 9 BUN 7 Creatinine 0.63 Est GFR ( Amer) > 60 Glucose 87 Calcium 8.6 Phosphorus 3.6 Magnesium 1.9 Total Bilirubin 1.1 AST 68 H Alkaline Phosphatase 90 Total Protein 5.7 L Albumin 2.9 L Lipase 656.7 H Impressions: Abdomen/Pelvis CT 02/17/20 00:00 IMPRESSION: 1. Findings compatible with pancreatitis again demonstrated with increased in ascites and possible increase in organization of the peripancreatic fluid, most pronounced along the inferior aspect/greater curvature of the stomach. 2. Pancreatic parenchyma enhances without definite evidence of necrosis. PICC Line Insertion 02/18/20 00:00 IMPRESSION: SUCCESSFUL PLACEMENT OF A 5 FR DUAL LUMEN 29.5 CM PICC IN THE RIGHT BASILIC VEIN. KUB X-Ray 02/18/20 10:04 IMPRESSION: NG tube is in satisfactory position. Assessment and Plan - Diagnosis (1) LITA (acute kidney injury) Is this a current diagnosis for this admission?: Yes (2) Acute alcoholic pancreatitis Qualifiers: Acute pancreatitis complication: uninfected necrosis Qualified Code(s): K85.21 - Alcohol induced acute pancreatitis with uninfected necrosis Is this a current diagnosis for this admission?: Yes (3) Alcohol abuse Is this a current diagnosis for this admission?: Yes (4) Hepatic steatosis Is this a current diagnosis for this admission?: Yes (5) Hypertriglyceridemia Is this a current diagnosis for this admission?: Yes (6) Hypocalcemia Is this a current diagnosis for this admission?: Yes (7) Ileus Is this a current diagnosis for this admission?: Yes (8) Ascites Qualifiers: Ascites type: other type Qualified Code(s): R18.8 - Other ascites Is this a current diagnosis for this admission?: Yes - Plan Summary Summary: CARLOS FLYNN JR is a 29 year old male with PMH of EtOH abuse who p/w abdominal pain x3 days. Patient has a history of daily drinking for several years, drinks about 6-8 8 ounce cans of alcoholic beverages daily, about 4 days ago he started having abdominal pain and he stopped drinking, since then he has been having worsening abdominal pain, abdominal distention, loss of appetite, diarrhea, nausea and vomiting. Abdominal pain is explained as diffuse, stabbing, 10/10 on severity scale, radiating to back, better with certain body position, constant, worse with eating or movement. In ED he was noted to be hyponatremic, with elevated BUN and creatinine, hypocalcemia, elevated liver chemistries, and lipase of 1985. On CT abdomen patient was noted to have acute pancreatitis with small to moderate ascites and subtle hypodense attenuation in the pancreatic head possibly developing pancr eatic necrosis, slight pleural effusion and severe hepatic steatosis. Trig were elevated and he was started on IVF, insulin gtt and made NPO. Acute Alcoholic Pancreatitis c/b Ileus: Over the course of his hospitalizatoin, he has had severe abdominal pain. Abdominal distention has progressively worsened. He has remained afebrile, hemodynamically stable, with improvement in labs. Triglycerides noted to be <500 so insulin gtt stopped. Repeat CT A/P performed 02/16 notable for bilateral effusions, ascites, no evidence of pancreatic necrosis, but he does have potential pseudocyst developing. On 02/17, due to increasingly tense abdomen and concern for ileus and poor UOP, Montano catheter and NGT were placed, and surgery was consulted. On 02/18, abdominal pain/distention improved, he has adequate UOP. Alcohol Abuse: he has had no evidence of withdrawal this hospitalization. Continue CIWA protocol. Alcohol cessation counseling provided. LFT Elevation: likely due to alcohol abuse. LITA: resolved with IVF. F/E/N: he has been NPO for several days now. He remains on continuous IVF. Electrolytes repleted. PICC placed on 02/17 and pharmacy consulted for TPN dosing. DVT ppx: heparin - Time Time Spent with patient: 25-34 minutes Anticipated Discharge Disposition: Home, Self Care Anticipated Discharge Timeframe: within 72 hours
[2020-02-19] MEDS: NORMAL SALINE 1000 ML 1,000 ML IV PRN (21:56)
[2020-02-20] MEDS: HYDROMORPHONE HCL INJ/PF 2 MG/ML AMPULE IV PRN ×9 (01:26→22:13)
[2020-02-20] MEDS: LORAZEPAM INJ 2 MG/1 ML VIAL IV PRN (03:37)
[2020-02-20] MEDS: HEPARIN SOD (PORCINE) 5,000 UNIT/ML 1 ML VIAL SUBCUT SCH ×3 (05:33→21:08)
[2020-02-20] MEDS: INSULIN REG, HUMAN 100 UNIT/ML 3 ML VIAL (PYX) SUBCUT SCH ×3 (05:34→18:10)
[2020-02-20] MEDS: AMINO ACIDS 5 %/DEXTROSE 20 % 1,000 ML IV PRN (06:03)
[2020-02-20] MEDS: NORMAL SALINE 1000 ML 1,000 ML IV PRN ×2 (06:12→20:25)
[2020-02-20 07:26] LABS: HEMATOCRIT 31.1 % (37.9-51.0); HEMOGLOBIN 10.8 g/dL (13.5-17.0); MEAN CORPUSCULAR HEMOGLOBIN 33.9 pg (27.0-33.4); MEAN CORPUSCULAR HGB CONC 34.6 g/dL (32.0-36.0); MEAN CORPUSCULAR VOLUME 98 fl (80-97); PLATELET COUNT 258 10^3/uL (150-450); RED BLOOD COUNT 3.17 10^6/uL (4.35-5.55); WHITE BLOOD COUNT 10.3 10^3/uL (4.0-10.5)
[2020-02-20 07:48] LABS: ALBUMIN 2.8 g/dL (3.5-5.0); ALKALINE PHOSPHATASE 65 U/L (38-126); ANION GAP 7 (5-19); ASPARTATE AMINO TRANSFERASE 79 U/L (17-59); BILIRUBIN,DIRECT 0.5 mg/dL (0.0-0.4); BILIRUBIN,TOTAL 0.7 mg/dL (0.2-1.3); BLOOD UREA NITROGEN 6 mg/dL (7-20); CALCIUM 8.2 mg/dL (8.4-10.2); CARBON DIOXIDE 28 mmol/L (22-30); CHLORIDE 96 mmol/L (98-107); GLUCOSE 356 mg/dL (75-110); PHOSPHORUS 4.1 mg/dL (2.5-4.5); POTASSIUM 4.2 mmol/L (3.6-5.0); TOTAL PROTEIN 5.4 g/dL (6.3-8.2)
[2020-02-20] MEDS: NORMAL SALINE 10 ML SDV (SCHEDULED) IV SCH ×2 (09:35→21:09)
--- NOTE | 2020-02-20 11:47 | PDOC PROGRESS REPORT ---
Subjective Date:: 02/20/20 Subjective:: 29-year-old male with alcoholic pancreatitis. Patient has been suffering from a n ileus. He currently denies any flatus or bowel movement over the last 24 hours. His abdominal pain is stable. He reports that it is still moderate to severe in intensity. He continues to require pain medication. He denies any hematochezia, hematemesis, melena, headache, shortness of breath, chest pain, dizziness, blurry vision. Reason For Visit: ACUTE PANCREATITIS Physical Exam Vital Signs: Temp Pulse Resp BP Pulse Ox 98.6 F 117 H 17 120/71 94 02/20/20 09:38 02/20/20 07:52 02/20/20 07:52 02/20/20 07:52 02/20/20 07:52 Intake & Output 02/19/20 02/20/20 02/21/20 06:59 06:59 06:59 Intake Total 1500 1000 Output Total 1225 1750 Balance 275 -750 Weight 84.9 kg 86 kg General appearance: PRESENT: no acute distress Head exam: PRESENT: atraumatic, normocephalic Eye exam: PRESENT: EOMI, PERRLA Mouth exam: PRESENT: moist, neck supple Neck exam: ABSENT: tenderness, thyromegaly, tracheal deviation Respiratory exam: PRESENT: unlabored. ABSENT: tachypnea, wheezes Cardiovascular exam: PRESENT: tachycardia GI/Abdominal exam: PRESENT: distended, soft, tenderness - Mild/moderate abdominal tenderness, other - No sign of peritonitis. ABSENT: rebound, rigid Rectal exam: PRESENT: deferred Musculoskeletal exam: ABSENT: deformity Neurological exam: PRESENT: alert, awake, oriented to person, oriented to place, oriented to time, oriented to situation Psychiatric exam: ABSENT: agitated, anxious, depressed Focused psych exam: ABSENT: delusional Results Laboratory Results: 02/20/20 06:23 02/20/20 06:23 02/18/20 02/20/20 02/20/20 10:54 06:23 06:23 WBC 7.8 10.3 RBC 3.75 L 3.17 L Hgb 12.4 L 10.8 L Hct 36.4 L 31.1 L MCV 97 98 H MCH 32.9 33.9 H MCHC 34.0 34.6 RDW 15.2 H 15.0 H Plt Count 191 258 Seg Neutrophils % Sodium 131.0 L Potassium 4.2 Chloride 96 L Carbon Dioxide 28 Anion Gap 7 BUN 6 L Creatinine 0.57 Est GFR ( Amer) > 60 Glucose 356 H Calcium 8.2 L Phosphorus 4.1 Magnesium 2.0 Total Bilirubin 0.7 AST 79 H Alkaline Phosphatase 65 Total Protein 5.4 L Albumin 2.8 L Lipase 915.1 H 02/15/20 10:56 Blood Blood Culture - Final NO GROWTH IN 5 DAYS Impressions: Abdomen/Pelvis CT 02/17/20 00:00 IMPRESSION: 1. Findings compatible with pancreatitis again demonstrated with increased in ascites and possible increase in organization of the peripancreatic fluid, most pronounced along the inferior aspect/greater curvature of the stomach. 2. Pancreatic parenchyma enhances without definite evidence of necrosis. PICC Line Insertion 02/18/20 00:00 IMPRESSION: SUCCESSFUL PLACEMENT OF A 5 FR DUAL LUMEN 29.5 CM PICC IN THE RIGHT BASILIC VEIN. KUB X-Ray 02/18/20 10:04 IMPRESSION: NG tube is in satisfactory position. Assessment & Plan - Diagnosis (1) Acute alcoholic pancreatitis Qualifiers: Acute pancreatitis complication: uninfected necrosis Qualified Code(s): K85.21 - Alcohol induced acute pancreatitis with uninfected necrosis Is this a current diagnosis for this admission?: Yes (2) Ileus Is this a current diagnosis for this admission?: Yes - Time Anticipated Discharge Disposition: unknown Anticipated Discharge Timeframe: unknown - Plan Summary Plan Summary: 29-year-old male with a history of alcohol abuse, presenting with acute pancreatitis. The patient reports that his abdominal pain is stable since yesterday. He denies any further nausea or vomiting with his NG in place. He also denies any flatus or bowel movement over the last 24 hours. Continue NG tube to minimize vomiting while the patient's ileus persists. Continue with supportive care. No surgical intervention is planned at present. Once he begins passing flatus, NG tube can be removed. Okay for ice chips and popsicles. Surgery will follow with you.
--- NOTE | 2020-02-20 18:47 | PDOC PROGRESS REPORT ---
Subjective Date:: 02/20/20 Subjective:: NAEO. Abdominal pain and distention are improving. He is passing lots of gas, but no BM yet. Reason For Visit: ACUTE PANCREATITIS Physical Exam Vital Signs: Temp Pulse Resp BP Pulse Ox 98.7 F 105 H 17 124/71 96 02/20/20 16:22 02/20/20 16:22 02/20/20 16:22 02/20/20 16:22 02/20/20 16:22 Intake & Output 02/19/20 02/20/20 02/21/20 06:59 06:59 06:59 Intake Total 1500 1000 Output Total 1225 1750 375 Balance 275 -750 -375 Weight 84.9 kg 86 kg General appearance: PRESENT: no acute distress, cooperative Eye exam: ABSENT: scleral icterus Mouth exam: PRESENT: moist Throat exam: ABSENT: post pharyngeal erythema Neck exam: ABSENT: JVD Respiratory exam: PRESENT: crackles. ABSENT: rhonchi, wheezes Cardiovascular exam: PRESENT: RRR GI/Abdominal exam: PRESENT: distended, hypoactive bowel sounds, normal bowel sounds, soft, tenderness - diffuse. ABSENT: firm, guarding, mass, Dunham's sign, rebound, rigid Rectal exam: PRESENT: deferred Gentrourinary exam: PRESENT: urethral discharge Extremities exam: PRESENT: +1 edema Musculoskeletal exam: PRESENT: ambulatory Neurological exam: PRESENT: alert, awake Psychiatric exam: PRESENT: anxious Skin exam: ABSENT: jaundice Results Laboratory Results: 02/20/20 06:23 02/20/20 06:23 02/20/20 02/20/20 06:23 06:23 WBC 10.3 RBC 3.17 L Hgb 10.8 L Hct 31.1 L MCV 98 H MCH 33.9 H MCHC 34.6 RDW 15.0 H Plt Count 258 Sodium 131.0 L Potassium 4.2 Chloride 96 L Carbon Dioxide 28 Anion Gap 7 BUN 6 L Creatinine 0.57 Est GFR ( Amer) > 60 Glucose 356 H Calcium 8.2 L Phosphorus 4.1 Magnesium 2.0 Total Bilirubin 0.7 AST 79 H Alkaline Phosphatase 65 Total Protein 5.4 L Albumin 2.8 L Lipase 915.1 H 02/15/20 13:20 Blood Blood Culture - Final NO GROWTH IN 5 DAYS 02/15/20 10:56 Blood Blood Culture - Final NO GROWTH IN 5 DAYS Impressions: Abdomen/Pelvis CT 02/17/20 00:00 IMPRESSION: 1. Findings compatible with pancreatitis again demonstrated with increased in ascites and possible increase in organization of the peripancreatic fluid, most pronounced along the inferior aspect/greater curvature of the stomach. 2. Pancreatic parenchyma enhances without definite evidence of necrosis. PICC Line Insertion 02/18/20 00:00 IMPRESSION: SUCCESSFUL PLACEMENT OF A 5 FR DUAL LUMEN 29.5 CM PICC IN THE RIGHT BASILIC VEIN. KUB X-Ray 02/18/20 10:04 IMPRESSION: NG tube is in satisfactory position. Assessment and Plan - Diagnosis (1) LITA (acute kidney injury) Is this a current diagnosis for this admission?: Yes (2) Acute alcoholic pancreatitis Qualifiers: Acute pancreatitis complication: uninfected necrosis Qualified Code(s): K85.21 - Alcohol induced acute pancreatitis with uninfected necrosis Is this a current diagnosis for this admission?: Yes (3) Alcohol abuse Is this a current diagnosis for this admission?: Yes (4) Hepatic steatosis Is this a current diagnosis for this admission?: Yes (5) Hypertriglyceridemia Is this a current diagnosis for this admission?: Yes (6) Hypocalcemia Is this a current diagnosis for this admission?: Yes (7) Ileus Is this a current diagnosis for this admission?: Yes (8) Ascites Qualifiers: Ascites type: other type Qualified Code(s): R18.8 - Other ascites Is this a current diagnosis for this admission?: Yes - Plan Summary Summary: CARLOS FLYNN JR is a 29 year old male with PMH of EtOH abuse who p/w abdominal pain x3 days. Patient has a history of daily drinking for several years, drinks about 6-8 8 ounce cans of alcoholic beverages daily, about 4 days ago he started having abdominal pain and he stopped drinking, since then he has been having worsening abdominal pain, abdominal distention, loss of appetite, diarrhea, nausea and vomiting. Abdominal pain is explained as diffuse, stabbing, 10/10 on severity scale, radiating to back, better with certain body position, constant, worse with eating or movement. In ED he was noted to be hyponatremic, with elevated BUN and creatinine, hypocalcemia, elevated liver chemistries, and lipase of 1986. On CT abdomen patient was noted to have acute pancreatitis with small to moderate ascites and subtle hypodense attenuation in the pancreatic head possibly developing p ancreatic necrosis, slight pleural effusion and severe hepatic steatosis. Trig were elevated and he was started on IVF, insulin gtt and made NPO. Acute Alcoholic Pancreatitis c/b Ileus: Over the course of his hospitalizatoin, he has had severe abdominal pain and distention. He has remained afebrile, hemodynamically stable, with improvement in labs. Triglycerides noted to be <500 so insulin gtt stopped. Repeat CT A/P performed 02/16 notable for bilateral effusions, ascites, no evidence of pancreatic necrosis, but he does have potential pseudocyst developing. On 02/17, due to increasingly tense abdomen and concern for ileus and poor UOP, Montano catheter and NGT were placed, and surgery was consulted. On 02/18, abdominal pain/distention improved, he has adequate UOP . On 02/19, patient accidentally pulled out his own NGT. He has bowel sounds and flatus with improvement in exam x2 days, so okay to leave NGT out for now. Alcohol Abuse: Continue CIWA protocol. Ativan PRN CIWA >7 or anxiety. Alcohol cessation counseling provided. LFT Elevation: likely due to alcohol abuse. LITA: resolved with IVF. F/E/N: he has been NPO for several days now. He remains on continuous IVF. Electrolytes repleted. PICC placed on 02/17 and pharmacy consulted for TPN dosing. DVT ppx: heparin - Time Time Spent with patient: 35 or more minutes Anticipated Discharge Disposition: Home, Self Care Anticipated Discharge Timeframe: within 72 hours
[2020-02-21] MEDS: HYDROMORPHONE HCL INJ/PF 2 MG/ML AMPULE IV PRN ×11 (00:38→23:38)
[2020-02-21] MEDS: LORAZEPAM INJ 2 MG/1 ML VIAL IV PRN ×3 (01:37→22:03)
[2020-02-21] MEDS: INSULIN REG, HUMAN 100 UNIT/ML 3 ML VIAL (PYX) SUBCUT SCH ×4 (01:51→23:21)
[2020-02-21] MEDS: NORMAL SALINE 1000 ML 1,000 ML IV PRN ×3 (03:27→23:26)
[2020-02-21] MEDS: HEPARIN SOD (PORCINE) 5,000 UNIT/ML 1 ML VIAL SUBCUT SCH ×3 (05:21→23:30)
[2020-02-21 06:40] LABS: HEMATOCRIT 27.9 % (37.9-51.0); HEMOGLOBIN 9.8 g/dL (13.5-17.0); MEAN CORPUSCULAR HEMOGLOBIN 33.8 pg (27.0-33.4); MEAN CORPUSCULAR VOLUME 97 fl (80-97); PLATELET COUNT 328 10^3/uL (150-450); RED BLOOD COUNT 2.89 10^6/uL (4.35-5.55); RED CELL DISTRIBUTION WIDTH 14.6 % (11.5-14.0); WHITE BLOOD COUNT 14.2 10^3/uL (4.0-10.5)
[2020-02-21 07:10] LABS: ALBUMIN 3.1 g/dL (3.5-5.0); ALKALINE PHOSPHATASE 75 U/L (38-126); ANION GAP 10 (5-19); ASPARTATE AMINO TRANSFERASE 86 U/L (17-59); BILIRUBIN,DIRECT 0.4 mg/dL (0.0-0.4); BILIRUBIN,TOTAL 0.8 mg/dL (0.2-1.3); BLOOD UREA NITROGEN 6 mg/dL (7-20); CALCIUM 8.5 mg/dL (8.4-10.2); CARBON DIOXIDE 26 mmol/L (22-30); CHLORIDE 98 mmol/L (98-107); GLUCOSE 97 mg/dL (75-110); PHOSPHORUS 3.9 mg/dL (2.5-4.5); POTASSIUM 3.8 mmol/L (3.6-5.0); TOTAL PROTEIN 5.9 g/dL (6.3-8.2)
[2020-02-21] MEDS: NORMAL SALINE 10 ML SDV (SCHEDULED) IV SCH ×2 (10:10→22:00)
--- NOTE | 2020-02-21 10:27 | PDOC PROGRESS REPORT ---
Subjective Date:: 02/21/20 Subjective:: feels a bit better now passing stool and flatus abd less bloated Reason For Visit: ACUTE PANCREATITIS Physical Exam Vital Signs: Temp Pulse Resp BP Pulse Ox 98.7 F 106 H 18 110/72 96 02/21/20 08:03 02/21/20 08:03 02/21/20 08:03 02/21/20 08:03 02/21/20 08:03 Intake & Output 02/20/20 02/21/20 02/22/20 06:59 06:59 06:59 Intake Total 1000 2000 Output Total 1750 2000 Balance -750 0 Weight 86 kg 87.6 kg General appearance: PRESENT: no acute distress Head exam: PRESENT: normocephalic Eye exam: PRESENT: EOMI Ear exam: PRESENT: normal external ear exam Mouth exam: PRESENT: moist Teeth exam: PRESENT: poor dentation Neck exam: PRESENT: full ROM Respiratory exam: PRESENT: clear to auscultation landry Cardiovascular exam: PRESENT: RRR Pulses: PRESENT: normal radial pulses, normal femoral pulses Vascular exam: PRESENT: normal capillary refill Breast: PRESENT: Normal GI/Abdominal exam: PRESENT: soft Rectal exam: PRESENT: deferred Gentrourinary exam: PRESENT: indwelling catheter Extremities exam: PRESENT: full ROM Musculoskeletal exam: PRESENT: ambulatory Neurological exam: PRESENT: alert, awake, oriented to person, oriented to place Skin exam: PRESENT: dry Results Laboratory Results: 02/21/20 05:46 02/21/20 05:46 02/21/20 02/21/20 05:46 05:46 WBC 14.2 H RBC 2.89 L Hgb 9.8 L Hct 27.9 L MCV 97 MCH 33.8 H MCHC 35.0 RDW 14.6 H Plt Count 328 Sodium 134.3 L Potassium 3.8 Chloride 98 Carbon Dioxide 26 Anion Gap 10 BUN 6 L Creatinine 0.56 Est GFR ( Amer) > 60 Glucose 97 Calcium 8.5 Phosphorus 3.9 Magnesium 1.8 Total Bilirubin 0.8 AST 86 H Alkaline Phosphatase 75 Total Protein 5.9 L Albumin 3.1 L Lipase 889.0 H 02/15/20 13:20 Blood Blood Culture - Final NO GROWTH IN 5 DAYS 02/15/20 10:56 Blood Blood Culture - Final NO GROWTH IN 5 DAYS Impressions: Abdomen/Pelvis CT 02/17/20 00:00 IMPRESSION: 1. Findings compatible with pancreatitis again demonstrated with increased in ascites and possible increase in organization of the peripancreatic fluid, most pronounced along the inferior aspect/greater curvature of the stomach. 2. Pancreatic parenchyma enhances without definite evidence of necrosis. PICC Line Insertion 02/18/20 00:00 IMPRESSION: SUCCESSFUL PLACEMENT OF A 5 FR DUAL LUMEN 29.5 CM PICC IN THE RIGHT BASILIC VEIN. KUB X-Ray 02/18/20 10:04 IMPRESSION: NG tube is in satisfactory position. Assessment & Plan - Time Anticipated Discharge Disposition: Home, Self Care Anticipated Discharge Timeframe: unk - Plan Summary Plan Summary: etoh pancreatitis with ileus, now resolvign pt passing stool and flatus abd softer lipase still elevated would resume rx for the pancreatitis ileus resolved surgery will sign off for now, please reconsult if necessary.
[2020-02-21] MEDS: AMINO ACIDS 5 %/DEXTROSE 20 % 1,000 ML IV PRN (12:31)
--- NOTE | 2020-02-21 20:38 | PDOC PROGRESS REPORT ---
Subjective Date:: 02/21/20 Subjective:: NAEO. Abd pain/distention improved after having had 2 BM. Reason For Visit: ACUTE PANCREATITIS Physical Exam Vital Signs: Temp Pulse Resp BP Pulse Ox 98.1 F 101 H 18 131/82 H 99 02/21/20 16:34 02/21/20 16:34 02/21/20 16:34 02/21/20 16:34 02/21/20 16:34 Intake & Output 02/20/20 02/21/20 02/22/20 06:59 06:59 06:59 Intake Total 1000 2000 1000 Output Total 1750 1999 Balance -750 0 1000 Weight 86 kg 87.6 kg 87.6 kg General appearance: PRESENT: no acute distress, cooperative Eye exam: ABSENT: scleral icterus Mouth exam: PRESENT: moist Throat exam: ABSENT: post pharyngeal erythema Neck exam: ABSENT: JVD Respiratory exam: PRESENT: crackles, unlabored Cardiovascular exam: PRESENT: RRR GI/Abdominal exam: PRESENT: distended - improving, normal bowel sounds, soft. ABSENT: firm, guarding, hernia, Dunham's sign, tenderness Extremities exam: ABSENT: pedal edema Neurological exam: PRESENT: alert, awake, oriented to person, oriented to place, oriented to time, oriented to situation Psychiatric exam: PRESENT: appropriate affect Skin exam: ABSENT: jaundice Results Laboratory Results: 02/21/20 05:46 02/21/20 05:46 02/21/20 02/21/20 05:46 05:46 WBC 14.2 H RBC 2.89 L Hgb 9.8 L Hct 27.9 L MCV 97 MCH 33.8 H MCHC 35.0 RDW 14.6 H Plt Count 328 Sodium 134.3 L Potassium 3.8 Chloride 98 Carbon Dioxide 26 Anion Gap 10 BUN 6 L Creatinine 0.56 Est GFR ( Amer) > 60 Glucose 97 Calcium 8.5 Phosphorus 3.9 Magnesium 1.8 Total Bilirubin 0.8 AST 86 H Alkaline Phosphatase 75 Total Protein 5.9 L Albumin 3.1 L Lipase 889.0 H Impressions: Abdomen/Pelvis CT 02/17/20 00:00 IMPRESSION: 1. Findings compatible with pancreatitis again demonstrated with increased in ascites and possible increase in organization of the peripancreatic fluid, most pronounced along the inferior aspect/greater curvature of the stomach. 2. Pancreatic parenchyma enhances without definite evidence of necrosis. PICC Line Insertion 02/18/20 00:00 IMPRESSION: SUCCESSFUL PLACEMENT OF A 5 FR DUAL LUMEN 29.5 CM PICC IN THE RIGHT BASILIC VEIN. KUB X-Ray 02/18/20 10:04 IMPRESSION: NG tube is in satisfactory position. Assessment and Plan - Diagnosis (1) LITA (acute kidney injury) Is this a current diagnosis for this admission?: Yes (2) Acute alcoholic pancreatitis Qualifiers: Acute pancreatitis complication: uninfected necrosis Qualified Code(s): K85.21 - Alcohol induced acute pancreatitis with uninfected necrosis Is this a current diagnosis for this admission?: Yes (3) Alcohol abuse Is this a current diagnosis for this admission?: Yes (4) Hepatic steatosis Is this a current diagnosis for this admission?: Yes (5) Hypertriglyceridemia Is this a current diagnosis for this admission?: Yes (6) Hypocalcemia Is this a current diagnosis for this admission?: Yes (7) Ileus Is this a current diagnosis for this admission?: Yes (8) Ascites Qualifiers: Ascites type: other type Qualified Code(s): R18.8 - Other ascites Is this a current diagnosis for this admission?: Yes - Plan Summary Summary: CARLOS FLYNN JR is a 29 year old male with PMH of EtOH abuse who p/w abdominal pain x3 days. Patient has a history of daily drinking for several years, drinks about 6-8 8 ounce cans of alcoholic beverages daily, about 4 days ago he started having abdominal pain and he stopped drinking, since then he has been having worsening abdominal pain, abdominal distention, loss of appetite, diarrhea, nausea and vomiting. Abdominal pain is explained as diffuse, stabbing, 10/10 on severity scale, radiating to back, better with certain body position, constant, worse with eating or movement. In ED he was noted to be hyponatremic, with elevated BUN and creatinine, hypocalcemia, elevated liver chemistries, and lipase of 1985. On CT abdomen patient was noted to have acute pancreatitis with small to moderate ascites and subtle hypodense attenuation in the pancreatic head possibly developing pancreatic necrosis, slight pleural effusion and severe hepatic steatosis. Trig were elevated and he was started on IVF, insulin gtt and made NPO. Acute Alcoholic Pancreatitis c/b Ileus: Over the course of his hospitalizatoin, he has had severe abdominal pain and distention. He has remained afebrile, hemodynamically stable, with improvement in labs. Triglycerides noted to be <500 so insulin gtt stopped. Repeat CT A/P performed 02/16 notable for bilateral effusions, ascites, no evidence of pancreatic necrosis, but he does have potential pseudocyst developing. On 02/17, due to increasingly tense abdomen and concern for ileus and poor UOP, Montano catheter and NGT were placed, and surgery was consulted. On 02/18, abdominal pain/distention improved, he has adequate UOP. On 02/19, patient accidentally pulled out his own NGT. He has bowel sounds and flatus with improvement in exam x2 days, so okay to leave NGT out for now. 02/20, he had BM x2 with subsequent improvement in his abdominal pain and distention. Now that ileus has resolved, will start CLD. Remove Montano catheter. Alcohol Abuse: Continue CIWA protocol. Ativan PRN CIWA >7 or anxiety. Alcohol cessation counseling provided. LFT Elevation: likely due to alcohol abuse. LITA: resolved with IVF. F/E/N: he has been NPO for several days now. He remains on continuous IVF. Electrolytes repleted. PICC placed on 02/17 and pharmacy consulted for TPN dosing. DVT ppx: heparin - Time Time Spent with patient: 35 or more minutes Anticipated Discharge Disposition: Home, Self Care Anticipated Discharge Timeframe: within 72 hours
[2020-02-22] MEDS: HYDROMORPHONE HCL INJ/PF 2 MG/ML AMPULE IV PRN ×8 (01:41→21:19)
[2020-02-22] MEDS: INSULIN REG, HUMAN 100 UNIT/ML 3 ML VIAL (PYX) SUBCUT SCH ×3 (06:32→13:29)
[2020-02-22] MEDS: HEPARIN SOD (PORCINE) 5,000 UNIT/ML 1 ML VIAL SUBCUT SCH ×3 (06:39→21:19)
[2020-02-22 08:57] LABS: HEMATOCRIT 26.7 % (37.9-51.0); MEAN CORPUSCULAR HEMOGLOBIN 32.8 pg (27.0-33.4); MEAN CORPUSCULAR HGB CONC 33.8 g/dL (32.0-36.0); MEAN CORPUSCULAR VOLUME 97 fl (80-97); PLATELET COUNT 364 10^3/uL (150-450); RED BLOOD COUNT 2.75 10^6/uL (4.35-5.55); RED CELL DISTRIBUTION WIDTH 14.8 % (11.5-14.0); WHITE BLOOD COUNT 11.6 10^3/uL (4.0-10.5)
[2020-02-22] MEDS: NORMAL SALINE 1000 ML 1,000 ML IV PRN (08:59)
[2020-02-22 09:18] LABS: ALBUMIN 2.8 g/dL (3.5-5.0); ALKALINE PHOSPHATASE 63 U/L (38-126); ANION GAP 7 (5-19); ASPARTATE AMINO TRANSFERASE 78 U/L (17-59); BILIRUBIN,DIRECT 0.4 mg/dL (0.0-0.4); BILIRUBIN,TOTAL 0.5 mg/dL (0.2-1.3); BLOOD UREA NITROGEN 5 mg/dL (7-20); CALCIUM 8.5 mg/dL (8.4-10.2); CARBON DIOXIDE 30 mmol/L (22-30); CHLORIDE 97 mmol/L (98-107); GLUCOSE 108 mg/dL (75-110); PHOSPHORUS 4.4 mg/dL (2.5-4.5); POTASSIUM 4.1 mmol/L (3.6-5.0); TOTAL PROTEIN 5.6 g/dL (6.3-8.2)
[2020-02-22] MEDS: NORMAL SALINE 10 ML SDV (SCHEDULED) IV SCH ×2 (11:08→21:35)
[2020-02-22] MEDS ORDERED: ALTEPLASE INJ 2 MG VIAL (CATH CLEARANCE) IV ONE (13:00)
[2020-02-22] MEDS ORDERED: ADENOSINE INJ/PF 6 MG/2 ML SDV IV ONE (14:25)
[2020-02-22] MEDS: AMINO ACIDS 5 %/DEXTROSE 20 % 1,000 ML IV PRN (15:53)
--- NOTE | 2020-02-22 17:59 | EKG REPORT ---
SEVERITY:- OTHERWISE NORMAL ECG - SINUS TACHYCARDIA : Confirmed by: Noble Rolle MD 22-Feb-2020 17:58:45
[2020-02-22] MEDS: OXYCODONE-ACETAMINOPHEN 5-325 MG TABLET PO PRN (18:32)
--- NOTE | 2020-02-22 19:27 | PDOC PROGRESS REPORT ---
Subjective Date:: 02/22/20 Subjective:: NAEO. He is feeling progressively better every day. He had a BM today. He admits that he ate most of a cheeseburger today although he is on a CLD diet because he felt so hungry. This afternoon, he developed asymptomatic SVT which broke with vagal maneuver. Montano catheter removed yesterday and he is urinating normally, no issues. Reason For Visit: ACUTE PANCREATITIS Physical Exam Vital Signs: Temp Pulse Resp BP Pulse Ox 98.8 F 98 17 135/82 H 98 02/22/20 10:00 02/22/20 14:00 02/22/20 07:38 02/22/20 07:38 02/22/20 07:38 Intake & Output 02/21/20 02/22/20 02/23/20 06:59 06:59 06:59 Intake Total 2000 3000 505 Output Total 2000 1000 500 Balance 0 2000 5 Weight 87.6 kg 87.6 kg General appearance: PRESENT: no acute distress, cooperative, obese Eye exam: ABSENT: scleral icterus Mouth exam: PRESENT: moist Throat exam: ABSENT: post pharyngeal erythema Neck exam: ABSENT: JVD Respiratory exam: PRESENT: clear to auscultation landry, unlabored Cardiovascular exam: PRESENT: RRR GI/Abdominal exam: PRESENT: distended, normal bowel sounds, soft. ABSENT: firm, guarding, Dunham's sign, rebound, rigid, tenderness Gentrourinary exam: ABSENT: indwelling catheter Extremities exam: PRESENT: pedal edema Neurological exam: PRESENT: alert, awake, oriented to person, oriented to place, oriented to time, oriented to situation Psychiatric exam: PRESENT: appropriate affect Skin exam: ABSENT: jaundice, rash Results Laboratory Results: 02/22/20 08:42 02/22/20 08:42 02/22/20 02/22/20 08:42 08:42 WBC 11.6 H RBC 2.75 L Hgb 9.0 L Hct 26.7 L MCV 97 MCH 32.8 MCHC 33.8 RDW 14.8 H Plt Count 364 Sodium 133.6 L Potassium 4.1 Chloride 97 L Carbon Dioxide 30 Anion Gap 7 BUN 5 L Creatinine 0.56 Est GFR ( Amer) > 60 Glucose 108 Calcium 8.5 Phosphorus 4.4 Magnesium 1.7 Total Bilirubin 0.5 AST 78 H Alkaline Phosphatase 63 Total Protein 5.6 L Albumin 2.8 L Lipase 713.1 H Impressions: Abdomen/Pelvis CT 02/17/20 00:00 IMPRESSION: 1. Findings compatible with pancreatitis again demonstrated with increased in ascites and possible increase in organization of the peripancreatic fluid, most pronounced along the inferior aspect/greater curvature of the stomach. 2. Pancreatic parenchyma enhances without definite evidence of necrosis. PICC Line Insertion 02/18/20 00:00 IMPRESSION: SUCCESSFUL PLACEMENT OF A 5 FR DUAL LUMEN 29.5 CM PICC IN THE RIGHT BASILIC VEIN. KUB X-Ray 02/18/20 10:04 IMPRESSION: NG tube is in satisfactory position. Assessment and Plan - Diagnosis (1) LITA (acute kidney injury) Is this a current diagnosis for this admission?: Yes (2) Acute alcoholic pancreatitis Qualifiers: Acute pancreatitis complication: uninfected necrosis Qualified Code(s): K85.21 - Alcohol induced acute pancreatitis with uninfected necrosis Is this a current diagnosis for this admission?: Yes (3) Alcohol abuse Is this a current diagnosis for this admission?: Yes (4) Hepatic steatosis Is this a current diagnosis for this admission?: Yes (5) Hypertriglyceridemia Is this a current diagnosis for this admission?: Yes (6) Hypocalcemia Is this a current diagnosis for this admission?: Yes (7) Ileus Is this a current diagnosis for this admission?: Yes (8) Ascites Qualifiers: Ascites type: other type Qualified Code(s): R18.8 - Other ascites Is this a current diagnosis for this admission?: Yes (9) SVT (supraventricular tachycardia) Is this a current diagnosis for this admission?: Yes - Plan Summary Summary: CARLOS FLYNN JR is a 29 year old male with PMH of EtOH abuse who p/w abdominal pain x3 days. Patient has a history of daily drinking for several years, drinks about 6-8 8 ounce cans of alcoholic beverages daily, about 4 days ago he started having abdominal pain and he stopped drinking, since then he has been having worsening abdominal pain, abdominal distention, loss of appetite, diarrhea, nausea and vomiting. Abdominal pain is explained as diffuse, stabbing, 10/10 on severity scale, radiating to back, better with certain body position, constant, worse with eating or movement. In ED he was noted to be hyponatremic, with elevated BUN and creatinine, hypocalcemia, elevated liver chemistries, and lipase of 1985. On CT abdomen patient was noted to have acute pancreatitis with small to moderate ascites and subtle hypodense attenuation in the pancreatic head possibly developing pancreatic necrosis, slight pleural effusion and severe hepatic steatosis. Trig were elevated and he was started on IVF, insulin gtt and made NPO. Acute Alcoholic Pancreatitis c/b Ileus: Over the course of his hospitalizatoin, he has had severe abdominal pain and distention. He has remained afebrile, hemodynamically stable, with improvement in labs. Triglycerides noted to be <500 so insulin gtt stopped. Repeat CT A/P performed 02/16 notable for bilateral effusions, ascites, no evidence of pancreatic necrosis, but he does have potential pseudocyst developing. On 02/17, due to increasingly tense abdomen and concern for ileus and poor UOP, Montano catheter and NGT were placed, and surgery was consulted. On 02/18, abdominal pain/distention improved, he had adequate UOP. On 02/19, patient accidentally pulled out his own NGT. He had bowel sounds and flatus with improvement in exam x2 days, so decision was made to leave NGT out. 02/20, he had BM x2 with subsequent improvement in his abdominal pain and distention. He was started on a CLD and Montano catheter was removed. On 01/21, he continued to feel well on CLD, and he had another BM, so diet was advanced to full liquids. Alcohol Abuse: He has had no evidence of alcohol withdrawal this admission. Alcohol cessation counseling provided. LFT Elevation: likely due to alcohol abuse as AST>ALT. LITA: resolved with IVF hydration. SVT: he had a single, asymptomatic episode of SVT on 02/21 which was noted on telemetry. It broke quickly with vagal maneuver. He has no known history of prior episodes of SVT. F/E/N: he was NPO for several days this admission. PICC placed on 02/17 and pharmacy consulted for TPN dosing. If he tolerated a full liquid diet tomorrow, will plan to DC TPN on 02/22. DVT ppx: heparin - Time Time Spent with patient: 35 or more minutes Anticipated Discharge Disposition: Home, Self Care Anticipated Discharge Timeframe: within 72 hours
[2020-02-23] MEDS: OXYCODONE-ACETAMINOPHEN 5-325 MG TABLET PO PRN ×3 (00:35→15:20)
[2020-02-23] MEDS: HYDROMORPHONE HCL INJ/PF 2 MG/ML AMPULE IV PRN ×6 (03:12→21:52)
[2020-02-23] MEDS: HEPARIN SOD (PORCINE) 5,000 UNIT/ML 1 ML VIAL SUBCUT SCH ×3 (05:30→22:34)
[2020-02-23] MEDS: INSULIN REG, HUMAN 100 UNIT/ML 3 ML VIAL (PYX) SUBCUT SCH ×5 (06:34→23:58)
[2020-02-23 06:56] LABS: HEMATOCRIT 27.9 % (37.9-51.0); HEMOGLOBIN 9.5 g/dL (13.5-17.0); MEAN CORPUSCULAR HEMOGLOBIN 32.9 pg (27.0-33.4); MEAN CORPUSCULAR HGB CONC 34.1 g/dL (32.0-36.0); MEAN CORPUSCULAR VOLUME 96 fl (80-97); PLATELET COUNT 416 10^3/uL (150-450); RED CELL DISTRIBUTION WIDTH 14.5 % (11.5-14.0); WHITE BLOOD COUNT 11.4 10^3/uL (4.0-10.5)
[2020-02-23 07:23] LABS: ALBUMIN 2.9 g/dL (3.5-5.0); ALKALINE PHOSPHATASE 65 U/L (38-126); ANION GAP 8 (5-19); ASPARTATE AMINO TRANSFERASE 60 U/L (17-59); BILIRUBIN,DIRECT 0.4 mg/dL (0.0-0.4); BILIRUBIN,TOTAL 0.5 mg/dL (0.2-1.3); BLOOD UREA NITROGEN 6 mg/dL (7-20); CALCIUM 8.8 mg/dL (8.4-10.2); CARBON DIOXIDE 30 mmol/L (22-30); CHLORIDE 98 mmol/L (98-107); GLUCOSE 93 mg/dL (75-110); PHOSPHORUS 5.4 mg/dL (2.5-4.5); POTASSIUM 4.3 mmol/L (3.6-5.0); TOTAL PROTEIN 5.7 g/dL (6.3-8.2)
[2020-02-23] MEDS: NORMAL SALINE 10 ML SDV (SCHEDULED) IV SCH ×2 (09:23→21:50)
[2020-02-23] MEDS: FAT EMULSIONS 250 ML IV SCH (10:55)
--- NOTE | 2020-02-23 19:26 | PDOC PROGRESS REPORT ---
Subjective Date:: 02/23/20 Subjective:: CARLOS FLYNN JR is a 29 year old male Past medical history of EtOH abuse prese nting to ED complaining of abdominal pain x3 days. Patient has a history of daily drinking for several years, drinks about 6-8 8 ounce cans of alcoholic beverages daily, about 4 days ago he started having abdominal pain and he stopped drinking, since then he has been having worsening abdominal pain, abdominal distention, loss of appetite, diarrhea, nausea and vomiting. Abdominal pain is explained as diffuse, stabbing, 10/10 on severity scale, radiating to back, better with certain body position, constant, worse with eating or movement. Also complaining of being very anxious, having diffuse muscular spasms especially in the neck. Patient has history of multiple alcohol withdrawals however has never been hospitalized for alcohol withdrawal, he also has history of alcohol induced seizure but is not on any antiseizure medications. Patient denies any fever, shortness of breath, chest pain. In ED he was noted to be hyponatremic, with elevated BUN and creatinine, severe hypocalcemia, elevated liver chemistries, and lipase of [address] abdomen patient was noted to have acute pancreatitis with small to moderate ascites and subtle hypodense attenuation in the pancreatic head possibly developing pancreatic necrosis, slight pleural effusion and severe hepatic steatosis. Hospitalist was consulted for admission. 02/15/20 Patient was seen and examined at bedside. Still in pain but less from admission, still with nausea, no vomiting. Afebrile, minimal withdrawal symptoms. Trigly cerides noted to be 898 hence he was started on insulin drip and D5 water. Will repeat triglycerides every 12 hours and will stop insulin drip once his triglyceride has decreased to less than 500. 02/23/20 Care assumed today. Notes from previous week reviewed. patient currently being treated for Acute Pancreatitis, on TPN but tolerating full liquid. Still has abdominal pain but less from last week. He has a BM. Reason For Visit: ACUTE PANCREATITIS Physical Exam Vital Signs: Temp Pulse Resp BP Pulse Ox 97.9 F 82 17 109/70 96 02/23/20 16:05 02/23/20 16:05 02/23/20 16:05 02/23/20 16:05 02/23/20 16:05 Intake & Output 02/22/20 02/23/20 02/24/20 06:59 06:59 06:59 Intake Total 3000 505 443 Output Total 1000 1275 800 Balance 3412 -872 -779 Weight 87.6 kg 84.8 kg General appearance: PRESENT: no acute distress, cooperative Head exam: PRESENT: atraumatic, normocephalic Eye exam: PRESENT: EOMI, PERRLA Mouth exam: PRESENT: moist Neck exam: PRESENT: full ROM Respiratory exam: PRESENT: clear to auscultation landry, symmetrical, unlabored Cardiovascular exam: PRESENT: RRR, +S1, +S2 GI/Abdominal exam: PRESENT: distended, normal bowel sounds, soft, tenderness. A BSENT: rebound Extremities exam: PRESENT: full ROM Musculoskeletal exam: PRESENT: full ROM Neurological exam: PRESENT: alert, awake, oriented to person, oriented to place, oriented to time Results Laboratory Results: 02/23/20 06:35 02/23/20 06:35 02/23/20 02/23/20 06:35 06:35 WBC 11.4 H RBC 2.90 L Hgb 9.5 L Hct 27.9 L MCV 96 MCH 32.9 MCHC 34.1 RDW 14.5 H Plt Count 416 Sodium 135.5 L Potassium 4.3 Chloride 98 Carbon Dioxide 30 Anion Gap 8 BUN 6 L Creatinine 0.55 Est GFR ( Amer) > 60 Glucose 93 Calcium 8.8 Phosphorus 5.4 H Magnesium 1.8 Total Bilirubin 0.5 AST 60 H Alkaline Phosphatase 65 Total Protein 5.7 L Albumin 2.9 L Lipase 693.6 H Impressions: Abdomen/Pelvis CT 02/17/20 00:00 IMPRESSION: 1. Findings compatible with pancreatitis again demonstrated with increased in ascites and possible increase in organization of the peripancreatic fluid, most pronounced along the inferior aspect/greater curvature of the stomach. 2. Pancreatic parenchyma enhances without definite evidence of necrosis. PICC Line Insertion 02/18/20 00:00 IMPRESSION: SUCCESSFUL PLACEMENT OF A 5 FR DUAL LUMEN 29.5 CM PICC IN THE RIGHT BASILIC VEIN. KUB X-Ray 02/18/20 10:04 IMPRESSION: NG tube is in satisfactory position. Assessment and Plan - Diagnosis (1) Acute pancreatitis Qualifiers: Pancreatitis type: alcohol induced Acute pancreatitis complication: unspecified Qualified Code(s): K85.20 - Alcohol induced acute pancreatitis without necrosis or infection Is this a current diagnosis for this admission?: Yes Plan: Severe alcoholic pancreatitis. Denies any history of previous pancreatitis. Denies any history of abdominal trauma. Denies any history of hypertriglyceridemia. Presenting with sodium 125, BUN 25, creatinine 2.5, glucose 159, calcium 6.4, t otal bilirubin 1.6, AST 102, ALT 65, lipase 1985 CT abdomen positive for acute pancreatitis with moderate ascites and subtle hypodense attenuation in the pancreatic head possibly developing pancreatic necrosis. repeat CT abdomen 02/16 notable for bilateral effusions, ascites, no evidence of pancreatic necrosis, but he does have potential pseudocyst developing TAG 894 likely alcohol induced as well BISAP score moderate severity Currently tolerating full liquid diet advanced to general diet TPN discontinued wean off pain medications (2) LITA (acute kidney injury) Is this a current diagnosis for this admission?: Yes Plan: Nonoliguric. RESOLVED Prerenal most likely due to volume depletion caused by nausea and vomiting. Presenting with creatinine of 2.50>0.86>0.55. Baseline creatinine 0.8. (3) Hypertriglyceridemia Is this a current diagnosis for this admission?: Yes Plan: - TAG 894> less than 200 - was briefly on insulin drip (4) Alcohol abuse Is this a current diagnosis for this admission?: Yes Plan: Extensively counseled on alcohol abstinence. Encourage seeking rehab post discharge. (5) Alcohol withdrawal Qualifiers: Complication of substance-induced condition: uncomplicated Qualified Code(s): F10.230 - Alcohol dependence with withdrawal, uncomplicated Is this a current diagnosis for this admission?: Yes Plan: History of heavy alcohol abuse for several years. Drinks about 8 6 ounces of alcoholic beverages daily. no withdrawal symptoms currently (6) Hypocalcemia Is this a current diagnosis for this admission?: Yes Plan: RESOLVED Most likely due to acute severe alcoholic pancreatitis. . - Plan Summary Summary: DVT ppx: heparin - Time Time Spent with patient: 15-24 minutes Medications reviewed and adjusted accordingly: Yes Anticipated Discharge Disposition: Home, Self Care Anticipated Discharge Timeframe: TBD
[2020-02-24] MEDS: INSULIN REG, HUMAN 100 UNIT/ML 3 ML VIAL (PYX) SUBCUT SCH
[2020-02-24] MEDS: HYDROMORPHONE HCL INJ/PF 2 MG/ML AMPULE IV PRN ×2 (02:22→07:53)
[2020-02-24] MEDS: HEPARIN SOD (PORCINE) 5,000 UNIT/ML 1 ML VIAL SUBCUT SCH ×2 (06:36→13:27)
[2020-02-24 07:09] LABS: HEMATOCRIT 29.7 % (37.9-51.0); HEMOGLOBIN 10.2 g/dL (13.5-17.0); MEAN CORPUSCULAR HEMOGLOBIN 33.6 pg (27.0-33.4); MEAN CORPUSCULAR HGB CONC 34.5 g/dL (32.0-36.0); MEAN CORPUSCULAR VOLUME 97 fl (80-97); PLATELET COUNT 538 10^3/uL (150-450); RED BLOOD COUNT 3.04 10^6/uL (4.35-5.55); RED CELL DISTRIBUTION WIDTH 14.2 % (11.5-14.0); WHITE BLOOD COUNT 12.7 10^3/uL (4.0-10.5)
[2020-02-24 07:30] LABS: ALBUMIN 3.3 g/dL (3.5-5.0); ALKALINE PHOSPHATASE 73 U/L (38-126); ANION GAP 8 (5-19); ASPARTATE AMINO TRANSFERASE 47 U/L (17-59); BILIRUBIN,DIRECT 0.4 mg/dL (0.0-0.4); BILIRUBIN,TOTAL 0.5 mg/dL (0.2-1.3); BLOOD UREA NITROGEN 5 mg/dL (7-20); CALCIUM 9.4 mg/dL (8.4-10.2); CARBON DIOXIDE 31 mmol/L (22-30); CHLORIDE 98 mmol/L (98-107); GLUCOSE 91 mg/dL (75-110); PHOSPHORUS 5.2 mg/dL (2.5-4.5); POTASSIUM 4.4 mmol/L (3.6-5.0); TOTAL PROTEIN 6.4 g/dL (6.3-8.2)
[2020-02-24] MEDS ORDERED: HYDROMORPHONE HCL INJ/PF 2 MG/ML AMPULE IV PRN (08:44)
[2020-02-24] MEDS: NORMAL SALINE 10 ML SDV (SCHEDULED) IV SCH (10:34)
[2020-02-24 12:02] VITALS: BP 122/74
[2020-02-24] MEDS: OXYCODONE-ACETAMINOPHEN 5-325 MG TABLET PO PRN (14:11)
--- NOTE | 2020-02-24 18:05 | PDOC DISCHARGE SUMMARY ---
Impression - Admit/DC Date/PCP Admission Date/Primary Care Provider: 02/14/20 20:24 Discharge Date: 02/24/20 - Discharge Diagnosis (1) Acute pancreatitis Is this a current diagnosis for this admission?: Yes (2) LITA (acute kidney injury) Is this a current diagnosis for this admission?: Yes (3) Hypertriglyceridemia Is this a current diagnosis for this admission?: Yes (4) Alcohol abuse Is this a current diagnosis for this admission?: Yes (5) Alcohol withdrawal Is this a current diagnosis for this admission?: Yes (6) Hypocalcemia Is this a current diagnosis for this admission?: Yes - Assessment Summary: (1) Acute pancreatitis Qualifiers: Pancreatitis type: alcohol induced Acute pancreatitis complication: unspecified Qualified Code(s): K85.20 - Alcohol induced acute pancreatitis without necrosis or infection Is this a current diagnosis for this admission?: Yes Plan: Severe alcoholic pancreatitis. Denies any history of previous pancreatitis. Denies any history of abdominal trauma. Denies any history of hypertriglyceridemia. Presenting with sodium 125, BUN 25, creatinine 2.5, glucose 159, calcium 6.4, total bilirubin 1.6, AST 102, ALT 65, lipase 1985 CT abdomen positive for acute pancreatitis with moderate ascites and subtle hypodense attenuation in the pancreatic head possibly developing pancreatic necrosis. repeat CT abdomen 02/16 notable for bilateral effusions, ascites, no evidence of pancreatic necrosis, but he does have potential pseudocyst developing TAG 894 likely alcohol induced as well BISAP score moderate severity Currently tolerating full liquid diet advanced to general diet TPN discontinued wean off pain medications (2) LITA (acute kidney injury) Is this a current diagnosis for this admission?: Yes Plan: Nonoliguric. RESOLVED Prerenal most likely due to volume depletion caused by nausea and vomiting. Presenting with creatinine of 2.50>0.86>0.55. Baseline creatinine 0.8. (3) Hypertriglyceridemia Is this a current diagnosis for this admission?: Yes Plan: - TAG 894> less than 200 - was briefly on insulin drip (4) Alcohol abuse Is this a current diagnosis for this admission?: Yes Plan: Extensively counseled on alcohol abstinence. Encourage seeking rehab post discharge. (5) Alcohol withdrawal Qualifiers: Complication of substance-induced condition: uncomplicated Qualified Code(s): F10.230 - Alcohol dependence with withdrawal, uncomplicated Is this a current diagnosis for this admission?: Yes Plan: History of heavy alcohol abuse for several years. Drinks about 8 6 ounces of alcoholic beverages daily. no withdrawal symptoms currently (6) Hypocalcemia Is this a current diagnosis for this admission?: Yes Plan: RESOLVED Most likely due to acute severe alcoholic pancreatitis. . - Additional Information Discharge Diet: As Tolerated Discharge Activity: Activity As Tolerated Prescriptions: Oxycodone HCl/Acetaminophen [Percocet 10-325 Mg Tablet] 1 each PO Q8HP PRN 7 Days #30 tablet PRN Reason: Home Medications: Oxycodone HCl/Acetaminophen [Percocet 10-325 Mg Tablet] 1 each PO Q8HP PRN 7 Days #30 tablet 02/24/20 History of Present Illiness History of Present Illness: CARLOS FLYNN JR is a 29 year old male Past medical history of EtOH abuse presenting to ED complaining of abdominal pain x3 days. Patient has a history of daily drinking for several years, drinks about 6-8 8 ounce cans of alcoholic beverages daily, about 4 days ago he started having abdominal pain and he stopped drinking, since then he has been having worsening abdominal pain, abdominal distention, loss of appetite, diarrhea, nausea and vomiting. Abdominal pain is explained as diffuse, stabbing, 10/10 on severity scale, radiating to back, better with certain body position, constant, worse with eating or movement. Also complaining of being very anxious, having diffuse muscular spasms especially in the neck. Patient has history of multiple alcohol withdrawals however has never been hospitalized for alcohol withdrawal, he also has history of alcohol induced seizure but is not on any antiseizure medications. Patient denies any fever, shortness of breath, chest pain. In ED he was noted to be hyponatremic, with elevated BUN and creatinine, severe hypocalcemia, elevated liver chemistries, and lipase of [address] abdomen patient was noted to have acute pancreatitis with small to moderate ascites and subtle hypodense attenuation in the pancreatic head possibly developing pancreatic necrosis, slight pleural effusion and severe hepatic steatosis. Hospitalist was consulted for admission. Hospital Course Hospital Course: The patient was started on IV fluids, IV pain medications for pancraetitis. TAG was noted to be elevated to 898 hence he was briefly put on insulin drip to decrease TAG. Patient developed abdominal distention. Repeat CT AP showed bilateral pleural effusion, ascites and edema. IV flluids was stopped and he was given lasix. Surgery was consulted who recommended NPO, PICC line placement and TPN. Patient received TPN for a total of 5 days.NG tube inserted for decompression [place] was inserted due to poor UO, UO adequate after insertion. Abdominal pain and distention. patient was able to tolerate full and then regular diet. Pain meds switched to oral. Patient was discharged on feb 22, 2019. Physical Exam Vital Signs: Temp Pulse Resp BP Pulse Ox 98.2 F 82 16 122/74 98 02/24/20 13:27 02/24/20 13:27 02/24/20 13:27 02/24/20 13:27 02/24/20 13:27 Intake & Output 02/23/20 02/24/20 02/25/20 06:59 06:59 06:59 Intake Total 505 443 300 Output Total 1275 5600 Balance -770 -5157 300 Weight 84.8 kg 84.9 kg General appearance: PRESENT: no acute distress, cooperative Head exam: PRESENT: atraumatic, normocephalic Eye exam: PRESENT: EOMI, PERRLA Mouth exam: PRESENT: moist Neck exam: PRESENT: full ROM Respiratory exam: PRESENT: clear to auscultation landry, symmetrical, unlabored Cardiovascular exam: PRESENT: RRR, +S1, +S2 GI/Abdominal exam: PRESENT: normal bowel sounds, soft. ABSENT: rebound, tenderness Extremities exam: PRESENT: full ROM Musculoskeletal exam: PRESENT: full ROM Neurological exam: PRESENT: alert, awake, oriented to person, oriented to place, oriented to time, oriented to situation Psychiatric exam: PRESENT: normal mood Skin exam: PRESENT: normal color Results Laboratory Results: WBC 12.7 10^3/uL (4.0-10.5) H 02/24/20 05:50 RBC 3.04 10^6/uL (4.35-5.55) L 02/24/20 05:50 Hgb 10.2 g/dL (13.5-17.0) L 02/24/20 05:50 Hct 29.7 % (37.9-51.0) L 02/24/20 05:50 MCV 97 fl (80-97) 02/24/20 05:50 MCH 33.6 pg (27.0-33.4) H 02/24/20 05:50 MCHC 34.5 g/dL (32.0-36.0) 02/24/20 05:50 RDW 14.2 % (11.5-14.0) H 02/24/20 05:50 Plt Count 538 10^3/uL (150-450) H 02/24/20 05:50 Lymph % (Auto) % (13-45) 02/18/20 10:54 [place] % (Auto) % (3-13) 02/18/20 10:54 Eos % (Auto) % (0-6) 02/18/20 10:54 Baso % (Auto) % (0-2) 02/18/20 10:54 Absolute Neuts (auto) 10^3/uL (1.7-8.2) 02/18/20 10:54 Absolute Lymphs (auto) 10^3/uL (0.5-4.7) 02/18/20 10:54 Absolute Monos (auto) 10^3/uL (0.1-1.4) 02/18/20 10:54 Absolute Eos (auto) 10^3/uL (0.0-0.6) 02/18/20 10:54 Absolute Basos (auto) 10^3/uL (0.0-0.2) 02/18/20 10:54 Total Counted 100 02/18/20 10:54 Seg Neutrophils % % (42-78) 02/18/20 10:54 Seg Neuts % (Manual) 51 % (42-78) 02/18/20 10:54 Band Neutrophils % 5 % (3-5) 02/18/20 10:54 Lymphocytes % (Manual) 22 % (13-45) 02/18/20 10:54 Monocytes % (Manual) 17 % (3-13) H 02/18/20 10:54 Eosinophils % (Manual) 4 % (0-6) 02/18/20 10:54 Basophils % (Manual) 0 % (0-2) 02/18/20 10:54 Metamyelocytes % 1 % (0-1) 02/18/20 10:54 Abs Neuts (Manual) 4.4 10^3/uL (1.7-8.2) 02/18/20 10:54 Abs Lymphs (Manual) 1.7 10^3/uL (0.5-4.7) 02/18/20 10:54 Abs Monocytes (Manual) 1.3 10^3/uL (0.1-1.4) 02/18/20 10:54 Absolute Eos (Manual) 0.3 10^3/uL (0.0-0.6) 02/18/20 10:54 Abs Basophils (Manual) 0.0 10^3/uL (0.0-0.2) 02/18/20 10:54 Platelet Comment ADEQUATE 02/18/20 10:54 Polychromasia SLIGHT 02/18/20 10:54 Anisocytosis SLIGHT 02/18/20 10:54 PT 13.3 SEC (11.4-15.4) 02/15/20 06:37 INR 0.99 02/15/20 06:37 Sodium 137.2 mmol/L (137-145) 02/24/20 05:50 Potassium 4.4 mmol/L (3.6-5.0) 02/24/20 05:50 Chloride 98 mmol/L (98-107) 02/24/20 05:50 Carbon Dioxide 31 mmol/L (22-30) H 02/24/20 05:50 Anion Gap 8 (5-19) 02/24/20 05:50 BUN 5 mg/dL (7-20) L 02/24/20 05:50 Creatinine 0.60 mg/dL (0.52-1.25) 02/24/20 05:50 Est GFR ( Amer) > 60 (>60) 02/24/20 05:50 Est GFR (Non-Af Amer) Cancelled 02/14/20 12:12 Est GFR (MDRD) Non-Af > 60 (>60) 02/24/20 05:50 Glucose 91 mg/dL (75-110) 02/24/20 05:50 POC Glucose 117 mg/dL (70-110) H 02/23/20 18:16 Hemoglobin A1c % 5.1 % (4.7-6.0) 02/15/20 06:37 Lactic Acid 1.2 mmol/L (0.7-2.1) 02/18/20 10:54 Calcium 9.4 mg/dL (8.4-10.2) 02/24/20 05:50 Ionized Calcium Marsha 1.19 mmol/L (1.14-1.30) 02/18/20 10:54 Phosphorus 5.2 mg/dL (2.5-4.5) H 02/24/20 05:50 Magnesium 1.8 mg/dL (1.6-2.3) 02/24/20 05:50 Total Bilirubin 0.5 mg/dL (0.2-1.3) 02/24/20 05:50 Direct Bilirubin 0.4 mg/dL (0.0-0.4) 02/24/20 05:50 Neonat Total Bilirubin Not Reportable 02/24/20 05:50 Neonat Direct Bilirubin Not Reportable 02/24/20 05:50 Neonat Indirect Bili Not Reportable 02/24/20 05:50 AST 47 U/L (17-59) 02/24/20 05:50 ALT 36 U/L (<50) 02/24/20 05:50 Alkaline Phosphatase 73 U/L (38-126) 02/24/20 05:50 Ammonia < 8.7 umol/L (9-33) L 02/14/20 16:24 Total Protein 6.4 g/dL (6.3-8.2) 02/24/20 05:50 Albumin 3.3 g/dL (3.5-5.0) L 02/24/20 05:50 Triglycerides 159 mg/dL (<150) H 02/17/20 03:00 Cholesterol 200.70 mg/dL (0-200) H 02/17/20 03:00 LDL Cholesterol Direct 135 mg/dL (<100) H 02/17/20 03:00 VLDL Cholesterol 31.8 mg/dL (10-31) H 02/17/20 03:00 VLDL Cholesterol, Calc UNABLE TO CALCULATE 02/15/20 13:20 HDL Cholesterol 28 mg/dL (>40) L 02/17/20 03:00 Lipase 656.8 U/L (23-300) H 02/24/20 05:50 EGFR Cancelled 02/14/20 12:12 Urine Color DARK YELLOW 02/15/20 03:25 Urine Appearance SLIGHTLY-CLOUDY 02/15/20 03:25 Urine pH 6.0 (5.0-9.0) 02/15/20 03:25 Ur Specific [place] 1.024 02/15/20 03:25 Urine Protein 100 mg/dL (NEGATIVE) H 02/15/20 03:25 Urine Glucose (UA) NEGATIVE mg/dL (NEGATIVE) 02/15/20 03:25 Urine Ketones TRACE mg/dL (NEGATIVE) H 02/15/20 03:25 Urine Blood SMALL (NEGATIVE) H 02/15/20 03:25 Urine Nitrite NEGATIVE (NEGATIVE) 02/15/20 03:25 Urine Bilirubin NEGATIVE (NEGATIVE) 02/15/20 03:25 Urine Urobilinogen NEGATIVE mg/dL (<2.0) 02/15/20 03:25 Ur Leukocyte Esterase NEGATIVE (NEGATIVE) 02/15/20 03:25 Urine WBC (Auto) 1 /HPF 02/15/20 03:25 Urine RBC (Auto) 0 /HPF 02/15/20 03:25 U Hyaline Cast (Auto) 6 /LPF 02/15/20 03:25 Squamous Epi Cells Auto <1 /HPF 02/15/20 03:25 Urine Mucus (Auto) OCC /LPF 02/15/20 03:25 Urine Ascorbic Acid NEGATIVE (NEGATIVE) 02/15/20 03:25 Urine Opiates Screen UNCONFIRMED POSITIVE 02/15/20 03:25 Urine Methadone Screen NEGATIVE 02/15/20 03:25 Ur Barbiturates Screen NEGATIVE 02/15/20 03:25 Ur Phencyclidine Scrn NEGATIVE 02/15/20 03:25 Ur Amphetamines Screen NEGATIVE 02/15/20 03:25 U Benzodiazepines Scrn NEGATIVE 02/15/20 03:25 Urine Cocaine Screen UNCONFIRMED POSITIVE 02/15/20 03:25 U Marijuana (THC) Screen NEGATIVE 02/15/20 03:25 Serum Alcohol < 10 mg/dL (NONE DETECTED) 02/14/20 16:24 Hepatitis A IgM Ab Negative (Negative) 02/15/20 06:37 Hep Bs Antigen Negative (Negative) 02/15/20 06:37 Hep B Core IgM Ab Negative (Negative) 02/15/20 06:37 Hepatitis C Antibody <0.1 s/co ratio (0.0-0.9) 02/15/20 06:37 Impressions: Abdomen/Pelvis CT 02/14/20 12:08 IMPRESSION: 1. Acute pancreatitis with small to moderate ascites which is likely reactive. Evaluation of the pancreatic parenchyma is limited without IV contrast. There is subtle hypodense attenuation in the pancreatic head suggestive of developing pancreatic necrosis. 2. Severe hepatic steatosis. 3. Small right pleural effusion. Abdomen/Pelvis CT 02/17/20 00:00 IMPRESSION: 1. Findings compatible with pancreatitis again demonstrated with increased in ascites and possible increase in organization of the peripancreatic fluid, most pronounced along the inferior aspect/greater curvature of the stomach. 2. Pancreatic parenchyma enhances without definite evidence of necrosis. PICC Line Insertion 02/18/20 00:00 IMPRESSION: SUCCESSFUL PLACEMENT OF A 5 FR DUAL LUMEN 29.5 CM PICC IN THE RIGHT BASILIC VEIN. KUB X-Ray 02/18/20 10:04 IMPRESSION: NG tube is in satisfactory position. Plan Plan of Treatment: Pancreatitis Pancreatitis is an inflammation of the pancreas, an organ at the back of your abdomen. The pancreas produces insulin and enzymes that digest your food. Pancreatitis can be caused by gallstones in the bile duct, by alcohol or viruses, or by excess fat or calcium in the blood stream. Occasionally, pancreatitis occurs when a stomach ulcer franco through into the pancreas. We try to find the cause of pancreatitis, but some tests can't be done until the pancreas heals. The usual symptoms of pancreatitis are pain in the pit of the stomach that goes straight through to the back, vomiting, and low-grade fever. Severe cases require hospital admission, but many patients with mild pancreatitis do well at home. You will probably need medicine for pain and for vomiting. Sometimes we prescribe medicine to decrease stomach acid secretion and to decrease flow of pancreatic juices. Start with a diet of clear liquids (soda pop, juices). When the pain is decreasing, you can add some simple starches (potato, toast, applesauce). Avoid proteins and fats until you are completely painfree. When you're better, your doctor may suggest treatment to prevent future pancreatitis (such as gallbladder removal). Avoid alcohol forever. Get immediate treatment for any future episodes. Contact your doctor at once or return here if you have increasing pain, shortness of breath, general swelling, increasing size of the abdomen, continued vomiting, muscle spasms, or other new symptoms. Time Spent: Less than 30 Minutes Stroke Is this a Stroke Patient?: No Acute Heart Failure Is this a Heart Failure Patient?: No
== END 2020-02-24 14:21 | disposition home or self-care (01) | DRG 439 ==
LOC: ER 10:45 → EH 20:24 → 5 21:55
PROVIDERS: ADMIT Internal Medicine; ATTEND Internal Medicine
PROC: HZ2ZZZZ Detoxification Services for Substance Abuse Treatment (ICD-10-PCS; 2020-02-14)
PROC: 02HV33Z Insertion of Infusion Device into Superior Vena Cava, Percutaneous Approach (ICD-10-PCS; principal; 2020-02-18)
PROC: 3E0436Z Introduction of Nutritional Substance into Central Vein, Percutaneous Approach (ICD-10-PCS; 2020-02-18)
PROC: B518ZZA Fluoroscopy of Superior Vena Cava, Guidance (ICD-10-PCS; 2020-02-18)
PROC: B548ZZA Ultrasonography of Superior Vena Cava, Guidance (ICD-10-PCS; 2020-02-18)
DX: K85.21 Alcohol induced acute pancreatitis with uninfected necrosis (principal); N17.9 Acute kidney failure, unspecified; F10.230 Alcohol dependence with withdrawal, uncomplicated; R18.8 Other ascites; K56.7 Ileus, unspecified; E78.1 Pure hyperglyceridemia; Y90.0 Blood alcohol level of less than 20 mg/100 ml; E83.51 Hypocalcemia; F32.9 Major depressive disorder, single episode, unspecified; F17.210 Nicotine dependence, cigarettes, uncomplicated; Z79.899 Other long term (current) drug therapy; K70.0 Alcoholic fatty liver
CPT/HCPCS: 36415; 36573; 74018; 74176; 74177; 80053; 80061; 80074; 80307; 81001; 82140; 82330; 82962; 83036; 83605; 83690; 83735; 84100; 85025; 85027; 85610; 87040; 87070; 93005; 93010; 96361; 96374; 96375; 99285; J0610; J0696; J1170; J1642; J1644; J1815; J1940; J2060; J2270; J2405; J2550; J2997; J3490; J7030; J7042; J7050; J7120; S0119